=== PATIENT | male | born 1990 | race Caucasian/White ===

== ENCOUNTER → 2018-10-05 | Outpatient (CLI) | payer MEDICAID ==
[2018-10-05 13:48] LABS: BASO % 0.4 % (0.0-1.0); EOS # 0.1 10^3/uL (0.0-0.50); EOS % 2.7 % (0.0-3.0); HEMATOCRIT 36.8 % (42.0-52.0); HEMOGLOBIN 12.6 g/dl (13.5-17.5); LYMPH % 42.5 % (24.0-44.0); MEAN CORPUSCULAR HEMOGLOBIN 28.9 pg (27.0-33.0); MEAN CORPUSCULAR HGB CONC 34.2 g/dl (32.0-36.5); MEAN CORPUSCULAR VOLUME 84.4 fl (80.0-96.0); MONO # 0.5 10^3/uL (0.0-0.8); MONO % 10.5 % (0.0-5.0); NEUTROPHILS # 2.1 10^3/uL (1.8-7.7); NEUTROPHILS % 43.9 % (36.0-66.0); PLATELET COUNT, AUTOMATED 151 10^3/uL (150-450); RED BLOOD COUNT 4.36 10^6/uL (4.30-6.10); RED CELL DISTRIBUTION WIDTH 11.9 % (11.5-14.5); WHITE BLOOD COUNT 4.8 10^3/uL (4.0-10.0)
[2018-10-05 14:22] LABS: ALBUMIN 3.7 GM/DL (3.2-5.2); ALBUMIN/GLOBULIN RATIO 1.28 (1.00-1.93); ALKALINE PHOSPHATASE 55 U/L (45-117); ALT/SGPT 171 U/L (12-78); ANION GAP 7 MEQ/L (8-16); AST/SGOT 93 U/L (7-37); BILIRUBIN,TOTAL 0.3 MG/DL (0.2-1.0); BLOOD UREA NITROGEN 13 MG/DL (7-18); CALCIUM LEVEL 8.4 MG/DL (8.5-10.1); CARBON DIOXIDE LEVEL 29 MEQ/L (21-32); CHLORIDE LEVEL 107 MEQ/L (98-107); CREATININE FOR GFR 0.83 MG/DL (0.70-1.30); GLOMERULAR FILTRATION RATE > 60.0 (>60); GLUCOSE, FASTING 80 MG/DL (70-100); POTASSIUM SERUM 4.3 MEQ/L (3.5-5.1); SODIUM LEVEL 143 MEQ/L (136-145); TOTAL PROTEIN 6.6 GM/DL (6.4-8.2)
== END ==
LOC: M LAB 13:24
DX: F11.20 Opioid dependence, uncomplicated (principal)
CPT/HCPCS: 84443

== ENCOUNTER → 2019-07-05 | Outpatient (REF) | payer MEDICAID, OTHER ==
[2019-07-05 21:55] LABS: APPEARANCE, URINE HAZY (CLEAR); BACTERIA, URINE AUTO NEGATIVE (NEGATIVE); BILIRUBIN, URINE AUTO NEGATIVE (NEGATIVE); BLOOD, URINE BLOOD NEGATIVE (NEGATIVE); COLOR, URINE YELLOW (YELLOW); GLUCOSE, URINE (UA) AUTO NEGATIVE (NEGATIVE); KETONE, URINE AUTO TRACE mg/dL (NEGATIVE); LEUKOCYTE ESTERASE, URINE AUTO NEGATIVE (NEGATIVE); MUCUS, URINE SMALL (NEGATIVE); NITRITE, URINE AUTO NEGATIVE (NEGATIVE); PROTEIN, URINE AUTO 1+ mg/dL (NEGATIVE); RBC, URINE AUTO 1 /HPF (0-3); SPECIFIC GRAVITY URINE AUTO 1.036 (1.002-1.035); SQUAMOUS EPITHELIAL CELL UR AU 0 /HPF (0-6); UROBILINOGEN, URINE AUTO 0.2 mg/dL (0.0-2.0); WBC, URINE AUTO 0 /HPF (0-3)
== END ==
LOC: M LAB REF 09:14
PROVIDERS: ATTEND Physician Assistant Medical
DX: N39.0 Urinary tract infection, site not specified (principal)

== ENCOUNTER → 2019-07-07 | Outpatient (REF) | payer OTHER ==
[~2019-07-07] MED LIST: CLON0.2D6 PO; CLON0.2T PO; SUBO8MIS SL
[2019-07-07 16:00] LABS: BASO % 0.6 % (0.0-1.0); EOS # 0.2 10^3/uL (0.0-0.5); EOS % 3.1 % (0.0-3.0); HEMATOCRIT 34.8 % (42.0-52.0); HEMOGLOBIN 12.2 g/dl (13.5-17.5); LYMPH # 2.4 10^3/uL (1.5-5.0); LYMPH % 46.8 % (24.0-44.0); MEAN CORPUSCULAR HGB CONC 35.1 g/dl (32.0-36.5); MEAN CORPUSCULAR VOLUME 85.5 fl (80.0-96.0); MONO # 0.4 10^3/uL (0.0-0.8); MONO % 8.1 % (0.0-5.0); NEUTROPHILS # 2.1 10^3/uL (1.5-8.5); NEUTROPHILS % 41.2 % (36.0-66.0); PLATELET COUNT, AUTOMATED 143 10^3/uL (150-450); RED BLOOD COUNT 4.07 10^6/uL (4.30-6.10); WHITE BLOOD COUNT 5.2 10^3/uL (4.0-10.0)
[2019-07-07 16:12] LABS: APPEARANCE, URINE HAZY (CLEAR); BACTERIA, URINE AUTO NEGATIVE (NEGATIVE); BILIRUBIN, URINE AUTO NEGATIVE (NEGATIVE); BLOOD, URINE BLOOD NEGATIVE (NEGATIVE); COLOR, URINE YELLOW (YELLOW); GLUCOSE, URINE (UA) AUTO NEGATIVE (NEGATIVE); KETONE, URINE AUTO NEGATIVE (NEGATIVE); LEUKOCYTE ESTERASE, URINE AUTO NEGATIVE (NEGATIVE); MUCUS, URINE SMALL (NEGATIVE); NITRITE, URINE AUTO NEGATIVE (NEGATIVE); PROTEIN, URINE AUTO NEGATIVE (NEGATIVE); RBC, URINE AUTO 3 /HPF (0-3); SPECIFIC GRAVITY URINE AUTO 1.029 (1.002-1.035); SQUAMOUS EPITHELIAL CELL UR AU 0 /HPF (0-6); UROBILINOGEN, URINE AUTO 0.2 mg/dL (0.0-2.0); WBC, URINE AUTO 1 /HPF (0-3)
[2019-07-07 16:17] LABS: ALBUMIN 3.9 GM/DL (3.2-5.2); ALT/SGPT 29 U/L (12-78); BILIRUBIN,TOTAL 0.4 MG/DL (0.2-1.0); BLOOD UREA NITROGEN 10 MG/DL (7-18); CALCIUM LEVEL 8.6 MG/DL (8.5-10.1); CARBON DIOXIDE LEVEL 31 MEQ/L (21-32); CHLORIDE LEVEL 110 MEQ/L (98-107); CREATININE FOR GFR 0.95 MG/DL (0.70-1.30); GLOMERULAR FILTRATION RATE > 60.0 (>60); GLUCOSE, FASTING 59 MG/DL (70-100); SODIUM LEVEL 145 MEQ/L (136-145); TOTAL PROTEIN 6.8 GM/DL (6.4-8.2)
[2019-07-07 17:54] LABS: CHLAMYDIA DNA AMPLIFICATION NEGATIVE (NEGATIVE); GC DNA AMPLIFICATION NEGATIVE (NEGATIVE)
[2019-07-08 11:31] LABS: HEPATITIS B SURFACE ANTIGEN NEGATIVE (NEGATIVE)
[2019-07-08 11:59] LABS: HEPATITIS B CORE ANTIBODY IGM NEGATIVE (NEGATIVE)
[2019-07-08 12:00] LABS: HIV 1&2 SCREEN CENTAUR NEGATIVE (NEGATIVE)
[2019-07-08 12:01] LABS: HEPATITIS A ANTIBODY IGM NEGATIVE (NEGATIVE)
== END ==
LOC: M SFHCPLAZ 14:04
PROVIDERS: ATTEND Nurse Practitioner Family
DX: F11.11 Opioid abuse, in remission (principal); R10.9 Unspecified abdominal pain; Z11.9 Encounter for screening for infectious and parasitic diseases, unspecified; R35.8 Other polyuria; K59.00 Constipation, unspecified

== ENCOUNTER 2019-08-03 17:00 | Inpatient (IN) | payer MEDICAID, OTHER ==
[~2019-08-03] VITALS: Ht 172.7 cm; Wt 63.4 kg
[2019-08-03] MEDS ORDERED: SUBO8MIS SL ×2 (17:17→18:58)
[2019-08-03] MEDS ORDERED: CLON0.2D6 PO (17:17)
[2019-08-03 17:31] LABS: HEMATOCRIT 41.8 % (42.0-52.0); HEMOGLOBIN 14.5 g/dl (13.5-17.5); MEAN CORPUSCULAR HEMOGLOBIN 29.3 pg (27.0-33.0); MEAN CORPUSCULAR HGB CONC 34.7 g/dl (32.0-36.5); MEAN CORPUSCULAR VOLUME 84.4 fl (80.0-96.0); PLATELET COUNT, AUTOMATED 207 10^3/uL (150-450); RED BLOOD COUNT 4.95 10^6/uL (4.30-6.10); WHITE BLOOD COUNT 7.3 10^3/uL (4.0-10.0)
[2019-08-03 18:27] LABS: ACETAMINOPHEN LEVEL < 2.0 UG/ML (10.0-30.0); ALBUMIN 4.5 GM/DL (3.2-5.2); ALT/SGPT 41 U/L (12-78); AMPHETAMINES LEVEL URINE POSITIVE (NEGATIVE); BARBITURATES URINE NEGATIVE (NEGATIVE); BENZODIAZEPINES URINE NEGATIVE (NEGATIVE); BILIRUBIN,DIRECT 0.2 MG/DL (0.0-0.2); BILIRUBIN,TOTAL 0.5 MG/DL (0.2-1.0); BLOOD UREA NITROGEN 17 MG/DL (7-18); CALCIUM LEVEL 9.2 MG/DL (8.5-10.1); CANNABINOIDS URINE NEGATIVE (NEGATIVE); CARBON DIOXIDE LEVEL 28 MEQ/L (21-32); CHLORIDE LEVEL 106 MEQ/L (98-107); COCAINE METABOLITE URINE POSITIVE (NEGATIVE); CPK CREATINE PHOSPHOKINASE 2056 U/L (39-308); CREATININE FOR GFR 1.05 MG/DL (0.70-1.30); ETHYL ALCOHOL (ETHANOL) < 0.003 % (0.000-0.010); GLOMERULAR FILTRATION RATE > 60.0 (>60); GLUCOSE, FASTING 89 MG/DL (70-100); METHADONE URINE NEGATIVE (NEGATIVE); OPIATES URINE NEGATIVE (NEGATIVE); PHENCYCLIDINE URINE NEGATIVE (NEGATIVE); POTASSIUM SERUM 3.6 MEQ/L (3.5-5.1); SALICYLATE LEVEL 2.4 MG/DL (5.0-30.0); SODIUM LEVEL 140 MEQ/L (136-145)
[2019-08-03] MEDS ORDERED: CLON0.2T PO (18:58)
[2019-08-03] MEDS ORDERED: NS 1,000 ML IV ONE ×2 (19:00)
--- NOTE | 2019-08-03 20:50 | ECGEPIP ---
[facility] - ED Test Date: 2019-08-03 Pat Name: GREGORIA MCDANIEL Department: Room: - Gender: Male Willower: : 1990 Requested By: Janie Yeboah Order Number: [id number] Reading MD: Janie Yeboah Measurements Intervals [place] Rate: 61 P: 55 LA: 112 QRS: 68 QRSD: 106 T: 59 QT: 431 QTc: 435 Interpretive Statements SINUS RHYTHM WITH SHORT LA INTERVAL EARLY REPOLARIZATION NO PRIOR Electronically Signed on 08-03-2019 20:50:08 EDT by Janie Yeboah
[2019-08-03] MEDS ORDERED: BUPRENORPHINE/NALOXONE 8-2MG SUBLINGUAL TABLET(SUBOXONE) SL ONE (21:30)
[2019-08-03] MEDS: NS 1,000 ML IV SCH (23:19)
[2019-08-04] MEDS: NS 1,000 ML IV SCH (05:41)
[2019-08-04] MEDS ORDERED: BUPRENORPHINE/NALOXONE 8-2MG SUBLINGUAL TABLET(SUBOXONE) SL ONE (07:45)
[2019-08-04] MEDS ORDERED: MOM 30ML SUSPENSION UDC PO PRN (14:15)
[2019-08-04] MEDS ORDERED: MAALOX 30 ML SUSP *UDC PO PRN (14:15)
[2019-08-04] MEDS ORDERED: traZODone 50 MG TAB PO PRN (14:15)
[2019-08-04] MEDS: cloNIDine 0.2 MG TAB PO SCH (22:54)
[2019-08-04] MEDS: DOCUSATE SODIUM 100 MG CAP PO SCH (22:54)
[2019-08-05 06:28] VITALS: BP 95/52
[2019-08-05 08:30] VITALS: BP 95/52
[2019-08-05] MEDS ORDERED: INFLUENZA QUADRIVALENT PF VACCINE 0.5ML SYRINGE (90686) IM ONE (09:00)
[2019-08-05] MEDS ORDERED: BUPRENORPHINE/NALOXONE 8-2MG SUBLINGUAL TABLET(SUBOXONE) SL SCH ×2 (09:00→12:00)
[2019-08-05] MEDS: BUPRENORPHINE/NALOXONE 8-2MG SUBLINGUAL TABLET(SUBOXONE) SL SCH (09:02)
[2019-08-05] MEDS: NICOTINE 21MG/24HR 1 EA TRANSDERMAL TD SCH (09:02)
[2019-08-05] MEDS: DOCUSATE SODIUM 100 MG CAP PO SCH ×2 (09:02→21:00)
--- NOTE | 2019-08-05 10:44 | HPEPDOC ---
[facility] Medical History & Physical Date of Admission Aug 05, 2019 Date of Service: Aug 05, 2019 History and Physical CONSULT FOR: Psychiatry medical H&P HISTORY OF PRESENT ILLNESS: This is a 29-year-old man who had the [place] [employer]: Him by his ex-fianc after he reportedly threatened to harm himself with a knife. The recently had a difficult breakup. The patient had been heroin abuser previously has been on Suboxone and incarcerated and has been clean for 1 year since his release however he began using illicit substances cocaine and Mollie with the last 2 weeks. At this time he tells me he feels tired but otherwise is feeling well. Otherwise patient denies weight loss, hair loss, headache, visual changes, chest pain, shortness of breath, cough, nausea, vomiting, diarrhea, a bdominal pain, muscle aches, worsening arthritis, change in mood PAST MEDICAL HISTORY: 1. Polysubstance abuse. 2. Chronic constipation. 3. Tobacco abuse. HOME MEDICATIONS: Please see below. ALLERGIES: Please see below PAST SURGICAL HISTORY: 1. None. SOCIAL HISTORY: Lives with: Ex-fivance, Tobacco use: One pack per day for 11 years. ETOH: Denies, Illicit drug use: As outlined above, CODE STATUS: Full code FAMILY HISTORY:Reviewed and noncontributory REVIEW OF SYSTEMS: 10 systems reviewed and negative other than HPI PHYSICAL EXAMINATION: VITAL SIGNS: Please see below GENERAL: Pleasant young man sitting up in bed awake alert oriented speaking in complete sentences no acute distress HEENT: Moist mucous membranes no elevation in CVP CARDIOVASCULAR: S1 S2 regular no additional heart sounds appreciated. RESPIRATORY: Clear to auscultation bilaterally. ABDOMINAL: Bowel sounds present abdomen soft and nontender EXTREMITIES: No clubbing cyanosis or edema, numerous tattoos all. We professionally done NEUROLOGICAL: Spontaneously moves all 4 extremities cranial 2 through 12 grossly intact no gross focal deficits appreciated PSYCHOLOGICAL: Appropriate LABORATORY DATA: See below. MICROBIOLOGY: Please see below. IMAGING: None ASSESSMENT & PLAN: This is a 29-year-old man with suicidal ideation. PROBLEMS: 1. major depressive disorder with suicidal ideation: Management as per psychiatry. 2.Substance abuse: He has been started on his home clonidine and Suboxone will require continued close outpatient follow-up through his PCP Joanie Garcia. Currently on peripheral 3. Tobacco abuse: NicoDerm assorted transplant 4. Chronic constipation: He is provided with Colace and milk of magnesia as needed DVT PROPHYLAXIS:Ambulating Thank you for this interesting consult, we will continue to follow along with you. Please Vocera secure text or call with any specific questions. Vital Signs Vital Signs Date Time Temp Pulse Resp B/P (MAP) Pulse Ox O2 Delivery O2 Flow Rate FiO2 08/05/19 08:30 98.6 57 14 95/52 99 08/05/19 08:14 Room Air Home Medications Scheduled Buprenorphine HCl/Naloxone HCl (Suboxone 8 mg-2 mg Sl Film) 1 Each Film, 1 STRIP SL DAILY Buprenorphine HCl/Naloxone HCl (Suboxone 8 mg-2 mg Sl Film) 1 Each Film, 0.5 STRIP SL DAILY AFTERNOON Clonidine HCl (Clonidine HCl) 0.2 Mg Tablet, 0.2 MG PO QHS Allergies Coded Allergies: No Known Drug Allergies (Verified Allergy, Unknown, 08/03/19) A-FIB/CHADSVASC A-FIB History Current/History of A-Fib/PAF?: No NAZARIO KING MD Aug 05, 2019 10:44
--- NOTE | 2019-08-05 10:49 | MHHPEPDOC ---
General Date Of Admission: Aug 04, 2019 Legal Status: 9.39 Chief Complaint "I don't really remember all that happened". History of Present Illness HISTORY OF THE PRESENT ILLNESS: Patient is a 29 -year-old , male, with a history of cociane/marck/opiate use d/o and no previous psych admissions who she was brought to ED by [facility] after pt's ex-girlfriend called them stating pt was threatening to harm himself with a knife he'd got from the kitchen during a verbal argument. Per ED, pt had be using cocaine and marck a few hours prior and in the past 2wks, on a drug binge, and up for the past 2 days. Pt in the ED denied that he'd grabbed a knife and was suicidal and stated his girlfriend was "crazy" and wanted to put him in the "psych rausch." Pt's mother, Carol Tran, called by the ED and stated that pt and girlfriend had had a bad break-up 2wks ago, had started relationship doing drugs together but the got into recovery together, and pt had been clean for 1yr prior to relapsing 2wks ago on marck and cocaine. Pt's mother stated that she did not think pt would harm himself per ED and has no history of doing so. Pt currently on [place] after incarceration for 5yrs for drugs. His utox was positive for cociane and amphetamines. Psychiatric Review of Systems Depression (2 or more weeks): suicidal thoughts Gilda (4 or more days of): denies Psychosis: denies PTSD: denies Anxiety: situational anxiety, stressor related anxiety Anxiety/ 6 months or more of: restlessness, keyed up, difficulty concentrating, irritability, muscle tension Past Psychiatric History Previous Psychiatric Diagnosis: cocaine/marck/opiate use d/o Previous Psychiatric Admissions: denies Suicide Attempts: denies Psychiatric Follow-up: creto Psychiatric medications: suboxone 1.5 (06/03) SL Past Medical History Medical Problems denies Head Injury: No Seizures: No Hospitalizations: No Surgeries: No Family Medical/Psychiatric HX Medical Problems noncontributory Psychiatric Disorders: No Addiction: No Suicide Attemps/Completions: Yes (cousin commited suicide when pt was in care home) Addiction History nicotine, cocaine, amphetamines, opioids (past use, on suboxone now), methamphetamines, other (marck) Social History Childhood: born [place] raised in [place], mostly by his mother with father on-and -off around, 3 sisters, good childhood Abuse/Trauma:denies. Current Living Situation: lives in [place] with his girlfriend (he's calls her his fiance and says they're still together) and her kids Education: GED Employment: construction "under the table" payment Social Support: mother, girlfriend. Legal: parole after incarceration 5yrs for drugs Marital: single, never , no biological kids Mental Status Examination General Appearance: well groomed, appears stated age, hospital scubs/clothing Build: average Demeanor: average Eye Contact: average Activity: average Behavior: cooperative Speech: clear, spontaneous, reg/rate,rhythm,volume Mood: depressed Mood "better" Affect: full, appropriate, congruent Thought Process: logical/linear, intact Thought Content (Delusions): none reported, denies SI, HI, AVH Thought Content (Other): none reported, appropriate Thought Content (Aggressive): none reported Perception (Hallucinations): none reported Perception (Other): none reported Cognition (Impairment of): none reported Cognition(Intelligence Est.): average Oriented: Awake, Alert, Oriented times three Insight: fair Judgment: Fair Psychosis: Denies Diagnoses Unspecified Depression R/O substance induced mood d/o - cocaine cocaine/amphetamine/psychedelic use d/o history opiate use d/o A-FIB/CHADSVASC A-FIB History Current/History of A-Fib/PAF?: No Assessment Pt seen and states he's doing "ok." States that he had been on a 2wk binge with cocaine and Marck after having leaving home where he lives with his girlfriend b/c he knew she would be upset and not want to be with him if he was using drugs b/c "she's totally against that," and had returned to home night of admission very high and cannot remember exactly what happened regarding if he threatened to harm himself with a knife. States he's glad he's here now for help to stop using substances and get into sobriety again. He denies feeling depressed or suicidal. Denies he needs to start an antidepressant at this time as feels better w/o substance abuse and good sleep at night. Encouraged to go to groups as part of his treatment and he states he will. Will restart outpatient suboxo ne for pt while here regarding history opiate use d/o. Denies SI/HI, hallucinations, delusions. Feels safe here. Initial Treatment Plan 1. Patient was admitted on a 9.39 status. 2. Complete history was obtained. 3. With patients permission, family will be contacted and database will be expanded. 4. Patients medication regimen will be reviewed and changed accordingly. 5. Patient will be provided with protected environment. 6. Patient will be treated with individual, group, and milieu therapies. 7. Patient will receive supportive psych-education. 8. Discharge planning will commence immediately. 9. Outpatient follow-up treatment will be strongly recommended. 10. The initial treatment plan will focus initially on: * Depression. * Risk for suicide. 11. restart outpatient suboxone ESTIMATED LENGTH OF STAY: 5-7 DAYS. TIME SPENT COUNSELING AND COORDINATING INITIAL CARE: 60 minutes. Vital Signs Vital Signs Date Time Temp Pulse Resp B/P (MAP) Pulse Ox O2 Delivery O2 Flow Rate FiO2 08/05/19 08:30 98.6 57 14 95/52 99 08/05/19 08:14 Room Air Medications Scheduled Buprenorphine HCl/Naloxone HCl (Suboxone 8 mg-2 mg Sl Film) 1 Each Film, 1 STRIP SL DAILY, (Reported) Buprenorphine HCl/Naloxone HCl (Suboxone 8 mg-2 mg Sl Film) 1 Each Film, 0.5 STRIP SL DAILY, (Reported) AFTERNOON Clonidine HCl (Clonidine HCl) 0.2 Mg Tablet, 0.2 MG PO QHS, (Reported) Allergies Coded Allergies: No Known Drug Allergies (Verified Allergy, Unknown, 08/03/19) ERICA MUSTAFA DO Aug 05, 2019 10:49 am
[2019-08-05 15:41] VITALS: BP 100/51
[2019-08-05] MEDS: cloNIDine 0.2 MG TAB PO SCH (21:00)
[2019-08-06 06:51] VITALS: BP 100/52
[2019-08-06] MEDS: ACETAMINOPHEN TAB 650MG DOSE (2X325MG) PO PRN (08:25)
[2019-08-06] MEDS: BUPRENORPHINE/NALOXONE 8-2MG SUBLINGUAL TABLET(SUBOXONE) SL SCH ×2 (08:34→15:13)
[2019-08-06] MEDS: NICOTINE 21MG/24HR 1 EA TRANSDERMAL TD SCH (09:14)
[2019-08-06] MEDS: DOCUSATE SODIUM 100 MG CAP PO SCH ×2 (09:14→21:00)
[2019-08-06] MEDS ORDERED: PILL CUTTER 1 EACH XX PRN (13:00)
[2019-08-06 16:02] VITALS: BP 108/66
--- NOTE | 2019-08-06 19:01 | MHIPNPDOC ---
[facility] Progress Note Progress Note DATE OF SERVICE: 08/06/19 HISTORY: As per Dr. Garland: "clarisa is a 29 -year-old , male, with a history of cociane/marck/opiate use d/o and no previous psych admissions who she was brought to ED by [facility] after pt's ex-girlfriend called them stating pt was threatening to harm himself with a knife he'd got from the kitchen during a verbal argument. Per ED, pt had be using cocaine and marck a few hours prior and in the past 2wks, on a drug binge, and up for the past 2 days. Pt in the ED denied that he'd grabbed a knife and was suicidal and stated his girlfriend was "crazy" and wanted to put him in the "psych rausch." Pt's mother, Carol Tran, called by the ED and stated that pt and girlfriend had had a bad break-up 2wks ago, had started relationship doing drugs together but the got into recovery together, and pt had been clean for 1yr prior to relapsing 2wks ago on marck and cocaine. Pt's mother stated that she did not think pt would harm himself per ED and has no history of doing so. Pt currently on [place] after incarceration for 5yrs for drugs. His utox was positive for cociane and amphetamines." VITAL SIGNS: See below. NEW TEST RESULTS: See below CURRENT MEDICATIONS: See below. MENTAL STATUS EXAMINATION: General Appearance: well groomed, appears stated age, wearing personal clothes Build: average Demeanor: cooperative Eye Contact: average Activity: calm Behavior: cooperative Speech: clear, spontaneous, reg/rate,rhythm,volume Mood: depressed/"less irritable" Mood "i feel better because I've been catching up on sleep" Affect: Constricted Thought Process: logical/linear, intact Thought Content (Delusions): none reported, denies SI, HI, AVH Thought Content (Other): none reported, appropriate Thought Content (Aggressive): none reported Perception (Hallucinations): none reported Perception (Other): none reported Cognition (Impairment of): none reported Cognition(Intelligence Est.): average Oriented: Awake, Alert, Oriented times three Insight: fair Judgment: Fair Psychosis: Denies Diagnoses Unspecified Depression R/O substance induced mood d/o - cocaine cocaine/amphetamine/psychedelic use d/o history opiate use d/o ASSESSMENT: the patient reports he's feeling better, medications are working, he is feeling less paranoid, he says, because he was afraid he was going to back to usp but now he knows he won't. He is talking to his GF and trying to make things work out between them MANAGEMENT PLAN: As per Dr. Garland TIME SPENT: 20 minutes. Vital Signs Vital Signs Date Time Temp Pulse Resp B/P (MAP) Pulse Ox O2 Delivery O2 Flow Rate FiO2 08/06/19 06:51 98.9 67 14 100/52 (68) 08/05/19 08:30 99 08/05/19 08:14 Room Air Current Medications Current Medications Medications (Trade) Dose Ordered Sig/Zohaib Route PRN Reason Start Time Stop Time Status Last Admin Dose Admin Acetaminophen (Tylenol Tab) 650 mg Q6HP PRN PO HEADACHE or DISCOMFORT 08/04/19 14:15 08/06/19 08:25 Al Hydrox/Mg Hydrox/Simethicone (Mylanta) 30 ml Q4HP PRN PO HEARTBURN/INDIGESTION 08/04/19 14:15 Buprenorphine/ Naloxone (Suboxone 8/2mg) 0.5 tab DAILY SL 08/05/19 09:00 08/04/19 15:43 DC 08/04/19 14:48 Buprenorphine/ Naloxone (Suboxone 8/2mg) 0.5 tab DAILY@1200 SL 08/05/19 12:00 08/06/19 12:45 DC 08/05/19 11:57 Buprenorphine/ Naloxone (Suboxone 8/2mg) 0.5 tab DAILY@1500 SL 08/06/19 15:00 Buprenorphine/ Naloxone (Suboxone 8/2mg) 1 tab DAILY SL 08/05/19 09:00 08/06/19 08:34 Clonidine HCl (Catapres) 0.2 mg QHS PO 08/04/19 21:00 Docusate Sodium (Colace) 100 mg BID PO 08/04/19 21:00 08/06/19 09:14 Home Med (Med Rec Complete!) ASDIRECTED XX 08/03/19 19:00 08/03/19 19:00 DC Magnesium Hydroxide (Milk Of Magnesia) 30 ml DAILYPRN PRN PO CONSTIPATION 08/04/19 14:15 Nicotine (Nicoderm Cq 21mg) 1 patch DAILY TD 08/05/19 09:00 08/06/19 09:14 Sodium Chloride 1,000 ml @ 150 mls/hr Q6H40M IV 08/03/19 23:06 08/04/19 07:35 DC 08/04/19 05:41 Trazodone HCl (Desyrel) 50 mg QHSP PRN PO INSOMNIA 08/04/19 14:15 Allergies Coded Allergies: No Known Drug Allergies (Verified Allergy, Unknown, 08/03/19) HELADIO NUGENT MD Aug 06, 2019 13:25
[2019-08-06 21:00] VITALS: BP 108/66
[2019-08-06] MEDS: cloNIDine 0.2 MG TAB PO SCH (21:00)
[2019-08-07 06:36] VITALS: BP 112/64
[2019-08-07] MEDS: DOCUSATE SODIUM 100 MG CAP PO SCH ×2 (08:36→21:00)
[2019-08-07] MEDS: NICOTINE 21MG/24HR 1 EA TRANSDERMAL TD SCH (08:36)
[2019-08-07] MEDS: BUPRENORPHINE/NALOXONE 8-2MG SUBLINGUAL TABLET(SUBOXONE) SL SCH ×2 (08:41→15:15)
[2019-08-07] MEDS: ACETAMINOPHEN TAB 650MG DOSE (2X325MG) PO PRN (08:41)
--- NOTE | 2019-08-07 12:11 | MHIPNPDOC ---
[facility] Progress Note Progress Note DATE OF SERVICE: 08/07/19 HISTORY: As per Dr. Garland: "clarisa is a 29 -year-old , male, with a history of cociane/marck/opiate use d/o and no previous psych admissions who she was brought to ED by [facility] after pt's ex-girlfriend called them stating pt was threatening to harm himself with a knife he'd got from the kitchen during a verbal argument. Per ED, pt had be using cocaine and marck a few hours prior and in the past 2wks, on a drug binge, and up for the past 2 days. Pt in the ED denied that he'd grabbed a knife and was suicidal and stated his girlfriend was "crazy" and wanted to put him in the "psych rausch." Pt's mother, Carol Tran, called by the ED and stated that pt and girlfriend had had a bad break-up 2wks ago, had started relationship doing drugs together but the got into recovery together, and pt had been clean for 1yr prior to relapsing 2wks ago on marck and cocaine. Pt's mother stated that she did not think pt would harm himself per ED and has no history of doing so. Pt currently on [place] after incarceration for 5yrs for drugs. His utox was positive for cociane and amphetamines." VITAL SIGNS: See below. NEW TEST RESULTS: See below CURRENT MEDICATIONS: See below. MENTAL STATUS EXAMINATION: General Appearance: well groomed, appears stated age, wearing personal clothes Build: average Demeanor: cooperative Eye Contact: average Activity: calm Behavior: cooperative Speech: clear, spontaneous, reg/rate,rhythm,volume Mood: depressed/"less irritable" Mood "Much better" Affect: Constricted Thought Process: logical/linear, intact Thought Content (Delusions): none reported, denies SI, HI, AVH Thought Content (Other): none reported, appropriate Thought Content (Aggressive): none reported Perception (Hallucinations): none reported Perception (Other): none reported Cognition (Impairment of): none reported Cognition(Intelligence Est.): average Oriented: Awake, Alert, Oriented times three Insight: fair Judgment: Fair Psychosis: Denies Diagnoses Unspecified Depression R/O substance induced mood d/o - cocaine cocaine/amphetamine/psychedelic use d/o history opiate use d/o ASSESSMENT: tHe seems to be less tense than yesterday when he was not happy about meeting with me because his GF was here. He is more realxed today because she's not here and he thinks he will be d/c/d tomorrow. MANAGEMENT PLAN: As per Dr. Garland TIME SPENT: 20 minutes. Vital Signs Vital Signs Date Time Temp Pulse Resp B/P (MAP) Pulse Ox O2 Delivery O2 Flow Rate FiO2 08/07/19 06:36 97.9 55 14 112/64 (80) 08/05/19 08:30 99 08/05/19 08:14 Room Air Current Medications Current Medications Medications (Trade) Dose Ordered Sig/Zohaib Route PRN Reason Start Time Stop Time Status Last Admin Dose Admin Acetaminophen (Tylenol Tab) 650 mg Q6HP PRN PO HEADACHE or DISCOMFORT 08/04/19 14:15 08/07/19 08:41 Al Hydrox/Mg Hydrox/Simethicone (Mylanta) 30 ml Q4HP PRN PO HEARTBURN/INDIGESTION 08/04/19 14:15 Buprenorphine/ Naloxone (Suboxone 8/2mg) 0.5 tab DAILY SL 08/05/19 09:00 08/04/19 15:43 DC 08/04/19 14:48 Buprenorphine/ Naloxone (Suboxone 8/2mg) 0.5 tab DAILY@1200 SL 08/05/19 12:00 08/06/19 12:45 DC 08/05/19 11:57 Buprenorphine/ Naloxone (Suboxone 8/2mg) 0.5 tab DAILY@1500 SL 08/06/19 15:00 08/06/19 15:13 Buprenorphine/ Naloxone (Suboxone 8/2mg) 1 tab DAILY SL 08/05/19 09:00 08/07/19 08:41 Clonidine HCl (Catapres) 0.2 mg QHS PO 08/04/19 21:00 Docusate Sodium (Colace) 100 mg BID PO 08/04/19 21:00 08/07/19 08:36 Home Med (Med Rec Complete!) ASDIRECTED XX 08/03/19 19:00 08/03/19 19:00 DC Magnesium Hydroxide (Milk Of Magnesia) 30 ml DAILYPRN PRN PO CONSTIPATION 08/04/19 14:15 Nicotine (Nicoderm Cq 21mg) 1 patch DAILY TD 08/05/19 09:00 08/07/19 08:36 Sodium Chloride 1,000 ml @ 150 mls/hr Q6H40M IV 08/03/19 23:06 08/04/19 07:35 DC 08/04/19 05:41 Trazodone HCl (Desyrel) 50 mg QHSP PRN PO INSOMNIA 08/04/19 14:15 Allergies Coded Allergies: No Known Drug Allergies (Verified Allergy, Unknown, 08/03/19) HELADIO NUGENT MD Aug 07, 2019 12:11
[2019-08-07 16:03] VITALS: BP 107/64
[2019-08-07] MEDS: cloNIDine 0.2 MG TAB PO SCH (21:00)
[2019-08-08 06:19] VITALS: BP 98/54
--- NOTE | 2019-08-08 08:39 | MHDSPDOC ---
[facility] Discharge Summary Discharge Summary DATE OF ADMISSION: Aug 04, 2019 at 2:05 pm DATE OF DISCHARGE: Aug 08, 2019 DISCHARGE DIAGNOSES: Unspecified Depression R/O substance induced mood d/o - cocaine cocaine/amphetamine/psychedelic use d/o history opiate use d/o REASON FOR ADMISSION:Patient is a 29 -year-old , male, with a history o f cociane/marck/opiate use d/o and no previous psych admissions who she was brought to ED by [facility] after pt's ex-girlfriend called them stating pt was threatening to harm himself with a knife he'd got from the kitchen during a verbal argument. Per ED, pt had be using cocaine and marck a few hours prior and in the past 2wks, on a drug binge, and up for the past 2 days. Pt in the ED denied that he'd grabbed a knife and was suicidal and stated his girlfriend was "crazy" and wanted to put him in the "psych rausch." Pt's mother, Carol Tran, called by the ED and stated that pt and girlfriend had had a bad break-up 2wks ago, had started relationship doing drugs together but the got into recovery together, and pt had been clean for 1yr prior to relapsing 2wks ago on marck and cocaine. Pt's mother stated that she did not think pt would harm himself per ED and has no history of doing so. Pt currently on [place] after incarceration for 5yrs for drugs. His utox was positive for cociane and amphetamines. CONSULTANTS INVOLVED: none TREATMENT AND PROGRESS ON THE UNIT : Pt was admitted to [facility], seen for psychiatric assessment and monitored for safety. He declined to start a psychotropic medication feeling he didn't need one b/c he wasn't depressed and preferred to try outpatient therapy first. He was provided trazodone 50mg qhs prn insomnia. Pt found his medications beneficial and tolerated them well. He attended groups daily during his stay. His symptoms improved with treatment. On day of discharge he denied depression, anxiety, insomnia, SI/HI, hallucinations, delusions. He was discharged home with follow-up at [facility]. He felt safe for discharge. DISCHARGE ASSESSMENT: Pt seen and states that his mood is "good". States he slept well last night. Feels he is tolerating his medications and they're beneficial. He is attending groups and finding them helpful. States his mother and girlfriend are supportive of him. He denies depression, anxiety, insomnia, SI/HI, hallucinations, delusions. Pt feels safe to be discharge home. MENTAL STATUS EXAMINATION ON DISCHARGE: General Appearance: well groomed, appears stated age, wearing personal clothes Build: average Demeanor: cooperative Eye Contact: average Activity: calm Behavior: cooperative Speech: clear, spontaneous, reg/rate,rhythm,volume Mood: depressed/"less irritable" Mood "good" Affect: Constricted Thought Process: logical/linear, intact Thought Content (Delusions): none reported, denies SI, HI, AVH Thought Content (Other): none reported, appropriate Thought Content (Aggressive): none reported Perception (Hallucinations): none reported Perception (Other): none reported Cognition (Impairment of): none reported Cognition(Intelligence Est.): average Oriented: Awake, Alert, Oriented times three Insight: fair Judgment: Fair Psychosis: Denies MEDICATIONS ON DISCHARGE: none PLAN/FOLLOWUP ARRANGEMENTS: D/c home with follow-up at [facility] and [facility] The amount of time spent in the coordination of care for this patient was approximately 30 minutes. Vital Signs/I&Os Vital Signs Date Time Temp Pulse Resp B/P (MAP) Pulse Ox O2 Delivery O2 Flow Rate FiO2 08/08/19 06:19 99.8 70 18 98/54 (69) 08/05/19 08:30 99 08/05/19 08:14 Room Air Medications Scheduled Buprenorphine HCl/Naloxone HCl (Suboxone 8 mg-2 mg Sl Film) 1 Each Film, 1 STRIP SL DAILY, (Reported) Buprenorphine HCl/Naloxone HCl (Suboxone 8 mg-2 mg Sl Film) 1 Each Film, 0.5 STRIP SL DAILY, (Reported) AFTERNOON Clonidine HCl (Clonidine HCl) 0.2 Mg Tablet, 0.2 MG PO QHS, (Reported) Allergies Coded Allergies: No Known Drug Allergies (Verified Allergy, Unknown, 08/03/19) ERICA MUSTAFA DO Aug 08, 2019 8:39 am
[2019-08-08] MEDS: BUPRENORPHINE/NALOXONE 8-2MG SUBLINGUAL TABLET(SUBOXONE) SL SCH (08:43)
[2019-08-08] MEDS: NICOTINE 21MG/24HR 1 EA TRANSDERMAL TD SCH (08:43)
[2019-08-08] MEDS: DOCUSATE SODIUM 100 MG CAP PO SCH (08:43)
[2019-08-08] MEDS: ACETAMINOPHEN TAB 650MG DOSE (2X325MG) PO PRN (08:53)
== END 2019-08-08 11:30 | disposition home or self-care (01) | DRG 754 ==
LOC: M ED 17:00 → M ED INP 08-04 14:05 → M PSY 08-04 14:55
PROVIDERS: ADMIT Psychiatry & Neurology Addiction Medicine; ATTEND Psychiatry & Neurology Psychiatry
DX: F32.9 Major depressive disorder, single episode, unspecified (principal); F14.14 Cocaine abuse with cocaine-induced mood disorder; F15.10 Other stimulant abuse, uncomplicated; F11.10 Opioid abuse, uncomplicated; F17.200 Nicotine dependence, unspecified, uncomplicated; Z65.2 Problems related to release from prison; K59.09 Other constipation; Z79.899 Other long term (current) drug therapy

== ENCOUNTER 2019-12-02 05:45 | Emergency (ER) | payer MEDICAID, OTHER ==
[~2019-12-02] VITALS: Ht 172.7 cm; Wt 82.0 kg
[2019-12-02] MEDS ORDERED: NS 1,000 ML IV ONE ×2 (06:00→07:45)
[2019-12-02] MEDS ORDERED: LORazepam 2 MG/ML VIAL (J2060) IV ONE (06:00)
[2019-12-02] MEDS ORDERED: HYDR-3363 PO (06:03)
[2019-12-02] MEDS ORDERED: GABA600T4 PO (06:03)
[2019-12-02 06:40] LABS: BASO % 0.4 % (0.0-1.0); EOS % 0.4 % (0.0-3.0); HEMATOCRIT 32.3 % (42.0-52.0); HEMOGLOBIN 11.1 g/dl (13.5-17.5); LYMPH # 1.9 10^3/uL (1.5-5.0); LYMPH % 20.2 % (24.0-44.0); MEAN CORPUSCULAR HEMOGLOBIN 28.8 pg (27.0-33.0); MEAN CORPUSCULAR HGB CONC 34.4 g/dl (32.0-36.5); MEAN CORPUSCULAR VOLUME 83.7 fl (80.0-96.0); MONO # 1.2 10^3/uL (0.0-0.8); MONO % 12.5 % (0.0-5.0); NEUTROPHILS # 6.2 10^3/uL (1.5-8.5); NEUTROPHILS % 66.3 % (36.0-66.0); PLATELET COUNT, AUTOMATED 179 10^3/uL (150-450); RED BLOOD COUNT 3.86 10^6/uL (4.30-6.10); WHITE BLOOD COUNT 9.3 10^3/uL (4.0-10.0)
[2019-12-02 07:30] LABS: ACETAMINOPHEN LEVEL < 2.0 UG/ML (10.0-30.0); ALBUMIN 4.1 GM/DL (3.2-5.2); ALT/SGPT 52 U/L (12-78); BILIRUBIN,DIRECT 0.2 MG/DL (0.0-0.2); BILIRUBIN,TOTAL 1.1 MG/DL (0.2-1.0); BLOOD UREA NITROGEN 23 MG/DL (7-18); CARBON DIOXIDE LEVEL 24 MEQ/L (21-32); CHLORIDE LEVEL 104 MEQ/L (98-107); CPK CREATINE PHOSPHOKINASE 6555 U/L (39-308); CREATININE FOR GFR 1.04 MG/DL (0.70-1.30); ETHYL ALCOHOL (ETHANOL) < 0.003 % (0.000-0.010); GLOMERULAR FILTRATION RATE > 60.0 (>60); GLUCOSE, FASTING 79 MG/DL (70-100); POTASSIUM SERUM 4.2 MEQ/L (3.5-5.1); SALICYLATE LEVEL < 1.7 MG/DL (5.0-30.0); SODIUM LEVEL 140 MEQ/L (136-145); TOTAL PROTEIN 7.3 GM/DL (6.4-8.2)
--- NOTE | 2019-12-02 13:28 | ECGEPIP ---
[facility] - ED Test Date: 2019-12-02 Pat Name: GREGORIA MCDANIEL Department: Room: - Gender: Male [employer] Feeder: : 1990 Requested By: Ed Flowers Order Number: [id number] Reading MD: Janie Yeboah Measurements Intervals [place] Rate: 118 P: -15 LA: 114 QRS: 5 QRSD: 100 T: 46 QT: 350 QTc: 491 Interpretive Statements SINUS TACHYCARDIA WITH SHORT LA INTERVAL ABNORMAL RHYTHM ECG INCREASED RATE/PROLONGED QTC COMPARED 08/03/19 Electronically Signed on 12-02-2019 13:28:09 EST by Janie Yeboah
[2019-12-02 14:15] VITALS: BP 125/68
== END 2019-12-02 14:44 | disposition home or self-care (01) ==
LOC: M ED 05:45
DX: F15.229 Other stimulant dependence with intoxication, unspecified (principal); F17.210 Nicotine dependence, cigarettes, uncomplicated; Z79.891 Long term (current) use of opiate analgesic
CPT/HCPCS: 80048; 80076; 82550; 84443; 85025; 93005; 93041; 94760; 96361; 96374; 99285; G0480; J2060

== ENCOUNTER → 2020-06-03 | Emergency (ER) | payer MEDICAID, OTHER ==
[~2020-06-03] MED LIST changes: +GABA600T4 PO; +HYDR-3363 PO; +NALOXONE 2MG/2ML SYRINGE (J2310 PER 1MG) ONE
[2020-07-19 16:51] LABS: BASO % 0.3 % (0.0-1.0); EOS # 0.1 10^3/uL (0.0-0.5); EOS % 1.4 % (0.0-3.0); HEMATOCRIT 37.2 % (42.0-52.0); LYMPH # 1.1 10^3/uL (1.5-5.0); LYMPH % 17.4 % (24.0-44.0); MEAN CORPUSCULAR HGB CONC 32.3 g/dl (32.0-36.5); MEAN CORPUSCULAR VOLUME 86.7 fl (80.0-96.0); MONO # 0.5 10^3/uL (0.0-0.8); MONO % 8.2 % (0.0-5.0); NEUTROPHILS # 4.7 10^3/uL (1.5-8.5); NEUTROPHILS % 72.4 % (36.0-66.0); PLATELET COUNT, AUTOMATED 175 10^3/uL (150-450); RED BLOOD COUNT 4.29 10^6/uL (4.30-6.10); WHITE BLOOD COUNT 6.5 10^3/uL (4.0-10.0)
[2020-08-15 15:51] LABS: ABG pH (ARTERIAL) 7.241 UNITS (7.350-7.450)
[2020-08-15 15:52] LABS: ABG BASE EXCESS -2.7 (-2.0-2.0); ABG HCO3 25.4 MEQ/L (22.0-26.0); ABG O2 SATURATION 98.7 % (95.0-99.0); ABG PARTIAL PRESSURE CO2 60.5 mmHg (35.0-45.0); ABG STANDARD HCO3 22.2 MEQ/L (22.0-26.0); ABG TOTAL CO2 27.3 MEQ/L (22.0-29.0)
[2020-08-15 15:54] LABS: ACETAMINOPHEN LEVEL < 2.0 UG/ML (10.0-30.0); ALBUMIN 3.6 GM/DL (3.2-5.2); ALT/SGPT 24 U/L (12-78); BILIRUBIN,DIRECT 0.1 MG/DL (0.0-0.2); BILIRUBIN,TOTAL 0.3 MG/DL (0.2-1.0); BLOOD UREA NITROGEN 9 MG/DL (7-18); CALCIUM LEVEL 8.3 MG/DL (8.5-10.1); CARBON DIOXIDE LEVEL 29 MEQ/L (21-32); CHLORIDE LEVEL 105 MEQ/L (98-107); CPK CREATINE PHOSPHOKINASE 202 U/L (39-308); CREATININE FOR GFR 0.86 MG/DL (0.70-1.30); ETHYL ALCOHOL (ETHANOL) < 0.003 % (0.000-0.010); GLOMERULAR FILTRATION RATE > 60.0 (>60); GLUCOSE, FASTING 81 MG/DL (70-100); POTASSIUM SERUM 4.1 MEQ/L (3.5-5.1); SALICYLATE LEVEL < 1.7 MG/DL (5.0-30.0); SODIUM LEVEL 139 MEQ/L (136-145); TOTAL PROTEIN 7.6 GM/DL (6.4-8.2)
== END | disposition home or self-care (01) ==
LOC: M ED 19:35
DX: M79.605 Pain in left leg (principal)
CPT/HCPCS: 70450; 72125; 80048; 80076; 82550; 82803; 84443; 85025; 99284; G0480; J2310

== ENCOUNTER 2020-12-28 07:42 | Inpatient (IN) | payer MEDICAID, OTHER, SELFPAY ==
[~2020-12-28] VITALS: Ht 172.7 cm; Wt 63.6 kg
[~2020-12-28 07:42] MED LIST changes: -NALOXONE 2MG/2ML SYRINGE (J2310 PER 1MG) ONE
[2020-12-28] MEDS ORDERED: NS 1,000 ML IV ONE ×3 (07:50→09:15)
[2020-12-28] MEDS ORDERED: LORazepam 2 MG/ML VIAL As Ordered ONE (07:50)
[2020-12-28] MEDS ORDERED: LORazepam 2 MG/ML VIAL IV STA (08:02)
--- OUTSIDE RECORDS SUMMARY | 2020-12-28 08:05 | CCD ---
Author Author [facility] Organization [facility] Address Unknown Phone Unavailable Care Team Providers Care Wire Preparation Worker Name Role Phone Pasha Benites MD Unavailable Unavailable Pasha Benites MD Unavailable Unavailable Pasha Benites MD Unavailable Unavailable Pasha Benites MD Unavailable Unavailable Pasha Benites MD Unavailable Unavailable Pasha Benites MD Unavailable Unavailable Pasha Benites MD Unavailable Unavailable Pasha Benites MD Unavailable Unavailable Pasha Benites MD Unavailable Unavailable Pasha Benites MD Unavailable Unavailable Pasha Benites MD Unavailable Unavailable Pasha Benites MD Unavailable Unavailable Pasha Benites MD Unavailable Unavailable Pasha Benites MD Unavailable Unavailable Pasha Benites MD Unavailable Unavailable Pasha Benites MD Unavailable Unavailable Pasha Benites MD Unavailable Unavailable Pasha Benites MD Unavailable Unavailable Pasha Benites MD Unavailable Unavailable Pasha Benites MD Unavailable Unavailable Pasha Benites MD Unavailable Unavailable Pasha Benites MD Unavailable Unavailable Pasha Benites MD Unavailable Unavailable Pasha Benites MD Unavailable Unavailable Pasha Benites MD Unavailable Unavailable Pasha Benites MD Unavailable Unavailable Pasha Benites MD Unavailable Unavailable Pasha Benites MD Unavailable Unavailable Pasha Benites MD Unavailable Unavailable Pasha Benites MD Unavailable Unavailable Pasha Benites MD Unavailable Unavailable Pasha Benites MD Unavailable Unavailable Pasha Benites MD Unavailable Unavailable Pasha Benites MD Unavailable Unavailable Pasha Benites MD Unavailable Unavailable Pasha Benites MD Unavailable Unavailable DAKSHA ERNST MD Unavailable Unavailable DAKSHA ERNST MD Unavailable Unavailable DAKSHA ERNST MD Unavailable Unavailable DAKSHA ERNST MD Unavailable Unavailable DAKSHA ERNST MD Unavailable Unavailable DAKSHA ERNST MD Unavailable Unavailable DAKSHA ERNST MD Unavailable Unavailable Nikki DRUMMOND MD Unavailable Unavailable Nikki DRUMMOND MD Unavailable Unavailable Nikki DRUMMOND MD Unavailable Unavailable Nikki DRUMMOND MD Unavailable Unavailable Nikki DRUMMOND MD Unavailable Unavailable Nikki DRUMMOND MD Unavailable Unavailable Nikki DRUMMOND MD Unavailable Unavailable Nikki DRUMMOND MD Unavailable Unavailable Nikki DRUMMOND MD Unavailable Unavailable Nikki DRUMMOND MD Unavailable Unavailable Nikki DRUMMOND MD Unavailable Unavailable Nikki DRUMMOND MD Unavailable Unavailable Nikki DRUMMOND MD Unavailable Unavailable Nikki DRUMMOND MD Unavailable Unavailable Nikki DRUMMOND MD Unavailable Unavailable Nikki DRUMMOND MD Unavailable Unavailable Nikki DRUMMOND MD Unavailable Unavailable Nikki DRUMMOND MD Unavailable Unavailable Nikki DRUMMOND MD Unavailable Unavailable Nikki DRUMMOND MD Unavailable Unavailable Nikki DRUMMOND MD Unavailable Unavailable Nikki DRUMMOND MD Unavailable Unavailable Nikki DRUMMOND MD Unavailable Unavailable Nikki DRUMMOND MD Unavailable Unavailable Nikki DRUMMOND MD Unavailable Unavailable Nikki DRUMMOND MD Unavailable Unavailable Nikki DRUMMOND MD Unavailable Unavailable Nikki DRUMMOND MD Unavailable Unavailable Nikki DRUMMOND MD Unavailable Unavailable Nikki DRUMMOND MD Unavailable Unavailable Nikki DRUMMOND MD Unavailable Unavailable Nikki DRUMMOND MD Unavailable Unavailable Nikki DRUMMOND MD Unavailable Unavailable Nikki DRUMMOND MD Unavailable Unavailable Nikki DRUMMOND MD Unavailable Unavailable Nikki DRUMMOND MD Unavailable Unavailable Nikki DRUMMOND MD Unavailable Unavailable Nikki DRUMMOND MD Unavailable Unavailable Nikki DRUMMOND MD Unavailable Unavailable Nikki DRUMMOND MD Unavailable Unavailable Nikki DRUMMOND MD Unavailable Unavailable Nikki DRUMMOND MD Unavailable Unavailable Nikki DRUMMODN MD Unavailable Unavailable Nikki DRUMMOND MD Unavailable Unavailable Nikki DRUMMOND MD Unavailable Unavailable Nikki DRUMMOND MD Unavailable Unavailable CRISTY, Nikki KIRKLAND MD Unavailable Unavailable CRISTY, Nikki KIRKLAND MD Unavailable Unavailable CRISTY, Nikki KIRKLAND MD Unavailable Unavailable CRISTY, T MARITA COKER Unavailable Unavailable CRISTY, T MARITA COKER Unavailable Unavailable CRISTY, T MARITA COKER Unavailable Unavailable CRISTY, Nikki KIRKLAND MD Unavailable Unavailable CRISTY, Nikki KIRKLAND MD Unavailable Unavailable CRISTY, Nikki KIRKLAND MD Unavailable Unavailable CRISTY, Nikki KIRKLAND MD Unavailable Unavailable CRISTY, Nikki KIRKLAND MD Unavailable Unavailable CRISTY, T MARITA COKER Unavailable Unavailable CRISTY, T MARITA COKER Unavailable Unavailable CRISTY, T MARITA COKER Unavailable Unavailable CRISTY, T MARITA COKER Unavailable Unavailable CRISTY, Nikki KIRKLAND MD Unavailable Unavailable CRISTY, T MARITA COKER Unavailable Unavailable CRISTY, T MARITA COKER Unavailable Unavailable CRISTY, T MARITA COKER Unavailable Unavailable CRISTY, T MARITA COKER Unavailable Unavailable CRISTY, T MARITA COKER Unavailable Unavailable CRISTY, T MARITA COKER Unavailable Unavailable CRISTY, Nikki KIRKLAND MD Unavailable Unavailable CRISTY, Nikki KIRKLAND MD Unavailable Unavailable CRISTY, Nikki KIRKLAND MD Unavailable Unavailable CRISTY, T MARITA COKER Unavailable Unavailable CRISTY, T MARITA COKER Unavailable Unavailable CRISTY, T MARITA COKER Unavailable Unavailable CRISTY, Nikki KIRKLAND MD Unavailable Unavailable CRISTY, T MARITA COKER Unavailable Unavailable CRISTY, T MARITA COKER Unavailable Unavailable CRISTY, T MARITA COKER Unavailable Unavailable CRISTY, T MARITA COKER Unavailable Unavailable CRISTY, T MARITA COKER Unavailable Unavailable CRISTY, T MARITA COKER Unavailable Unavailable CRISTY, Nikki KIRKLAND MD Unavailable Unavailable CRISTY, T MARITA COKER Unavailable Unavailable Kristi Ernst MD Unavailable Unavailable Re-disclosure Warning The records that you are about to access may contain information from federally-assisted alcohol or drug abuse programs. If such information is present, then the following federally mandated warning applies: This information has been disclosed to you from records protected by federal confidentiality rules (42 CFR part 2). The federal rules prohibit you from making any further disclosure of this information unless further disclosure is expressly permitted by the written consent of the person to whom it pertains or as otherwise permitted by 42 CFR part 2. A general authorization for the release of medical or other information is NOT sufficient for this purpose. The Federal rules restrict any use of the information to criminally investigate or prosecute any alcohol or drug abuse patient.The records that you are about to access may contain highly sensitive health information, the redisclosure of which is protected by Article 27-F of the [facility] Public Health law. If you continue you may have access to information: Regarding HIV / AIDS; Provided by facilities licensed or operated by the [facility] Office of Mental Health; or Provided by the [facility] Office for People With Developmental Disabilities. If such information is present, then the following [facility] mandated warning applies: This information has been disclosed to you from confidential records which are protected by state law. State law prohibits you from making any further disclosure of this information without the specific written consent of the person to whom it pertains, or as otherwise permitted by law. Any unauthorized further disclosure in violation of state law may result in a fine or custodial sentence or both. A general authorization for the release of medical or other information is NOT sufficient authorization for further disc losure. Allergies and Adverse Reactions Type Description Substance Reaction Status Data Source(s ) Drug allergy Drug allergy Fish Containing Products Anaphylactic Shock [facility] Encounters Encounter Providers Location Date Indications Data Source(s ) Outpatient [address] [place] [address] 08/16/2020 12:00:00 AM EDT - 12/25/2020 09:31:00 AM EST [facility] ([facility] [place]) Patient discharged. Inpatient Attender: Daksha Harmon nder: DAKSHA ERNST MDAdmitter: DAKSHA ERNST MD [facility] 06/12/2020 02:07:00 PM EDT - 06/15/2020 11:45:00 AM EDT PSYCHOACTIVE SUBSTANCE DEPENDENCE [facility] PSYCHOACTIVE SUBSTANCE DEPENDENCE Patient discharged. Unknown [address] [facility] [address] 04/27/2020 12:00:00 AM EDT eCW1 ([facility]) Outpatient Attender: MARITA CHRISTINA 02/14/2020 09:01:00 P M EDT [facility] Outpatient Attender: Mairta Benites MD [facility] 01/15 02:22:00 PM EDT [id number] [facility] [id number] Outpatient Attender: MARITA CHRISTINA 12/09/2019 08:40:00 A M [facility] Medications Medication Brand Name Start Date Product Form Dose Route Admi nistrative Instructions Pharmacy Instructions Status Indications Reaction Description Data Source(s) 8-2 mg 05/17/2020 12:00:00 AM EDT film [address] PL[address] ONE FILM UNDER THE TONGUE EVERY MORNING MAXIMUM DAILY DOSE = 1 PLACE ONE FILM UNDER THE TONGUE EVERY MORNING MAXIMUM DAILY DOSE = 1 SOLD: 05/19/2020 [facility] 8-2 mg 05/15/2020 12:00:00 AM EDT film 2 PLACE ONE FILM UNDER THE TONGUE EVERY MORNING MAXIMUM DAILY DOSE = [address] ONE FILM UNDER THE TONGUE EVERY MORNING MAXIMUM DAILY DOSE = 1 FILM SOLD: 05/16/2020 [facility] 8-2 mg 05/09/2020 12:00:00 AM EDT film 7 PLACE ONE FILM UNDER THE TONGUE EVERY MORNING, MAXIMUM DAILY DOSE = 1 PLACE ONE FILM UNDER THE TONGUE EVERY MORNING, MAXIMUM DAILY DOSE = 1 SOLD: 05/09/2020 [facility] 8-2 mg 05/01/2020 12:00:00 AM EDT film 7 PLACE ONE FILM UNDER THE TONGUE EVERY MORNING MAXIMUM DAILY DOSE = [address] ONE FILM UNDER THE TONGUE EVERY MORNING MAXIMUM DAILY DOSE = 1 FILM SOLD: 05/02/2020 [facility] 8-2 mg 04/24/2020 12:00:00 AM EDT film 7 PLACE ONE FILM UNDER THE TONGUE EVERY MORNING MAXIMUM DAILY DOSE = 1 PLACE ONE FILM UNDER THE TONGUE EVERY MORNING MAXIMUM DAILY DOSE = 1 SOLD: 04/24/2020 [facility] 4-1 mg 04/19/2020 12:00:00 AM EDT film 7 PLACE ONE FILM UNDER THE TONGUE EVERY MORNING MAXIMUM DAILY DOSE = [address] ONE FILM UNDER THE TONGUE EVERY MORNING MAXIMUM DAILY DOSE = 1 FILM SOLD: 04/19/2020 [facility] 4 mg/actuation 04/17/2020 12:00:00 AM EDT spray,non-aerosol 2 SPRAY ONE SPRAY IN NOSTRIL(S) NEEDED SPRAY ONE SPRAY IN NOSTRIL(S) NEEDED SOLD: 04/19/2020 [facility] 4-1 mg 04/16/2020 12:00:00 AM EDT film 2 PLACE ONE HALF FILM UNDER TONGUE EVERY MORNING. MAY REPEAT ONCE, MAXIMUM DAILY DOSE = [address] ONE HALF FILM UNDER TONGUE EVERY MORNING. MAY REPEAT ONCE, MAXIMUM DAILY DOSE = 1 FILM SOLD: 04/17/2020 [facility] 25 mg 11/27/2019 12:00:00 AM EST tablet 90 TAKE ONE TABLET BY MOUTH THREE TIMES A DAY NEEDED TAKE ONE TABLET BY MOUTH THREE TIMES A DAY NEEDED S OLD: 11/28/2019 [facility] Clonidine Hydrochloride 0.2 MG Oral Tablet CLONIDINE HCL 11/27/2019 12:00:00 AM EST tablet 30 TAKE ONE TABLET BY MOUTH AT BEDTIME TAKE ONE TABLET BY MOUTH AT BEDTIME SOLD: 11/28/2019 [facility] 8-2 mg 11/27/2019 12:00:00 AM EST film 30 PLACE THREE FILMS UNDER THE TONGUE EVERY DAY MAXIMUM DAILY DOSE = 3 PLACE THREE FILMS UNDER THE TONGUE EVERY DAY MAXIMUM DAILY DOSE = 3 SOLD: 11/28/2019 [facility] 25 mcg (1,000 unit) 11/27/2019 12:00:00 AM EST tablet 60 TAKE TWO TABLETS BY MOUTH EVERY DAY TAKE TWO TABLETS BY MOUTH EVERY DAY SOLD: 11/28/2019 [facility] 1,250 mcg (50,000 unit) 11/27/2019 12:00:00 AM EST capsule 4 TAKE 1 CAPSULE BY MOUTH WEEKLY TAKE 1 CAPSULE BY MOUTH WEEKLY SOLD: 11/28/2019 [facility] 600 mg 11/27/2019 12:00:00 AM EST tablet 90 TAKE ONE TABLET BY MOUTH THREE TIMES A DAY TAKE ONE TABLET BY MOUTH THREE TIMES A DAY SOLD: 11/28/2019 [facility] Insurance Providers Payer name Policy type / Coverage type Policy ID Covered libertarian ID Covered libertarian's relationship to shaffer Policy Shaffer Plan Information [facility] [id number] [facility] [id number] [id number] [id number] [facility] [id number] SP [id number] MEDICAID P [id number] S [id number] [place] [id number] SP [id number] [facility] [id number] SP [id number] MEDICAID [id number] Unemployed [id number] [facility] [id number] [facility] [id number] [facility] [id number] S [id number] Medicaid S [id number] S [id number] [facility] P [id number] S [id number] [facility] [id number] SP [id number] [facility] [id number] SP [id number] [facility] [id number] SP [id number] MEDICAID [id number] SP [id number] MEDICAID W [id number] S [id number] OTHER WORKERS COMPENSATI P [id number] S [id number] Problems, Conditions, and Diagnoses Code Display Name Description Problem Type Effective Dates Data Source(s) F41.1 Generalized anxiety disorder Generalized anxiety disor ange Diagnosis 10/09/2020 12:00:00 AM EST [facility] ([facility]) F11.20 Opioid dependence, uncomplicated Opioid use disorder, Moderate Diagnosis 10/09/2020 12:00:00 AM EST [facility] ([facility]) F15.20 Other stimulant dependence, uncomplicate d Amphetamine-type substance use disorder, Severe Diagnosis 10/09/2020 12:00:00 AM EST [facility] ([facility]) B02.9 Zoster without complications ZOSTER WITHOUT COMPLICATI ONS Diagnosis 06/12/2020 02:07:00 PM [facility] R07.9 Chest pain, unspecified CHEST PAIN, UNSPECIFIED Diagno sis 06/12/2020 02:07:00 PM [facility] F41.9 Anxiety disorder, unspecified ANXIETY DISORDER, UNSPEC IFIED Diagnosis 06/12/2020 02:07:00 PM [facility] F32.9 Major depressive disorder, single episod e, unspecified MAJOR DEPRESSIVE DISORDER, SINGLE EPISODE, UNSPECIFIED Diagnosis 06/12/2020 02:07:00 PM [facility] F17.210 Nicotine dependence, cigarettes, uncompl icated NICOTINE DEPENDENCE, CIGARETTES, UNCOMPLICATED Diagnosis 06/12/2020 02:07:00 PM [facility] F11.20 Opioid dependence, uncomplicated OPIOID DEPENDEN CE, UNCOMPLICATED Diagnosis 06/12/2020 02:07:00 PM [facility] F14.20 Cocaine dependence, uncomplicated COCAINE DEPEND ENCE, UNCOMPLICATED Diagnosis 06/12/2020 02:07:00 PM [facility] F15.20 Other stimulant dependence, uncomplicate d OTHER STIMULANT DEPENDENCE, UNCOMPLICATED Diagnosis 06/12/2020 02:07:00 PM [facility] Surgeries/Procedures Procedure Description Date Indications Data Source(s) Individual Counseling for Substance Abuse Treatment, C ontinuing Care INDIV BINDING CUTTER FOR SUBSTANCE ABUSE TREATMENT, CONTINUING CARE 06/12/2020 12:00:00 AM [facility] Individual Counseling for Substance Abuse Treatment, C ognitive-Behavioral INDIV BINDING CUTTER FOR SUBSTANCE ABUSE, COGNITIVE BEHAVIORAL 06/12/2020 12:00:00 AM EDT [facility] Group Counseling for Substance Abuse Treatment, Motiva tional Enhancement GROUP BINDING CUTTER FOR SUBSTANCE ABUSE, MOTIVATIONAL ENHANCE 06/12/2020 12:00:00 AM EDT [facility] Group Counseling for Substance Abuse Treatment, Spirit ual GROUP COUNSELING FOR SUBSTANCE ABUSE TREATMENT, SPIRITUAL 06/12/2020 12:00:00 AM EDT [facility] Group Counseling for Substance Abuse Treatment, Interp ersonal GROUP BINDING CUTTER FOR SUBSTANCE ABUSE TREATMENT, INTERPERSONAL 06/12/2020 12:00:00 AM EDT [facility] Results ID Date Data Source [id number] 08/06/2020 11:00:00 AM EDT [facility] Name Value Range Interpretation Code Description Data Benita rce(s) Supporting Document(s) SARS coronavirus 2 RNA [facility] This lab was ordered by [facility] and reported by [facility]. ID Date Data Source [id number] 06/14/2020 01:38:00 PM EDT [facility] Name Value Range Interpretation Code Description Data Benita rce(s) Supporting Document(s) HIV 1/2 Ab p24 Ag Screen Nonreactive Normal (applies to non-numeric results) [facility] ID Date Data Source [id number] 06/14/2020 06:53:00 PM EDT [facility] Name Value Range Interpretation Code Description Data Benita rce(s) Supporting Document(s) Opiate Screen,Urine Negative [facility] Amphetamine Screen,Urine Negative Normal (applies to non -numeric results) [facility] Benzodiazepines Scrn,Ur result Negative N ormal (applies to non-numeric results) [facility] Cocaine Screen,Urine Negative Normal (applies to non-num [place] results) [facility] Methadone Screen,Urine Negative Normal (applies to non-n umeric results) [facility] Cannabinoid Screen, Ur Negative Normal (applies to non-n umeric results) [facility] Therapeutic Drug Ranges for Emergency an d Rehabilitation Threshold Levels (ng/mL) Cocaine 300 Opiates 300 Cannabinoids 50 Barbiturates 200 Benzodiazepine 200 Methadone 300 Amphetamines 1000 All positive find ings are presumptive and unconfirmed. Confirmation of positive results are performed only at request of provider. Unconfirmed results must not be used for non-medical purposes (i.e. pre-employment and legal purposes) ID Date Data Source [id number] 06/13/2020 11:11:00 AM EDT [facility] Name Value Range Interpretation Code Description Data Benita rce(s) Supporting Document(s) Hep C Ab-T Test Nonreactive Normal (applies to non-numeric results) [facility] ID Date Data Source [id number] 06/13/2020 11:11:00 AM EDT [facility] Name Value Range Interpretation Code Description Data Benita rce(s) Supporting Document(s) Hep Bs Ag Result T-Test Nonreactive Normal (applies to non -numeric results) [facility] ID Date Data Source [id number] 06/13/2020 11:11:00 AM EDT [facility] Name Value Range Interpretation Code Description Data Benita rce(s) Supporting Document(s) HAVM Nonreactive Normal (applies to non-numeric resu lts) [facility] ID Date Data Source [id number] 06/13/2020 11:11:00 AM EDT [facility] Name Value Range Interpretation Code Description Data Benita rce(s) Supporting Document(s) Vitamin D,Total (25OH) 30.0-100.0 Normal (applies to non-n umeric results) [facility] Reference Range: <10 ng/mL: Deficien t 10-30 ng/mL: Insufficient 30-100 ng/mL: Sufficient >100 ng/mL: Toxicity possible ID Date Data Source [id number] 06/13/2020 11:12:00 AM EDT [facility] Name Value Range Interpretation Code Description Data Benita rce(s) Supporting Document(s) Syphilis Serology Nonreactive Normal (applies to non-numer ic results) [facility] ID Date Data Source [id number] 06/13/2020 10:28:00 AM EDT [facility] Name Value Range Interpretation Code Description Data Benita rce(s) Supporting Document(s) Sodium 141 mmol/L 137-145 Normal (applies to non-numeric resul ts) [facility] Potassium 3.5-5.1 Normal (applies to non-numeric resul ts) [facility] Chloride 108 mmol/L 98-112 Normal (applies to non-numeric resul ts) [facility] Carbon Dioxide CO2 22.0-33.0 Normal (applies to non-numer ic results) [facility] Anion Gap 4.0-11.0 Below low normal [facility] BUN 12 mg/dL 9-20 Normal (applies to non-numeric resul ts) [facility] Creatinine 0.80-1.50 Normal (applies to non-numeric resul ts) [facility] GFR >60 Normal (applies to non-numeric results) [facility] Result based on MDRD formula. Glucose Level 85 mg/dL 74-99 Normal (applies to non-numeric re sults) [facility] The reference range is only applicable w hen fasting. Calcium-Uncorrected 8.4-10.2 Normal (applies to non-nume maya results) [facility] Corrected Calcium 8.4-10.2 Normal (applies to non-numeri c results) [facility] Bilirubin,Total 0.2-1.3 Normal (applies to non-numeric results) [facility] Bilirubin,Direct 0.0-0.3 Normal (applies to non-numeric results) [facility] SGOT(AST) 17 U/L 17-59 Normal (applies to non-numeric resul ts) [facility] SGPT(ALT) 18 U/L 21-72 Below low normal [facility] Alkaline Phosphatase 108 U/L 38-126 Normal (applies to non-num [place] results) [facility] can increase Alkaline Phosp le vels up to 2 times the normal adult value. Normal values for children and adolescents are 2 to 3 times the normal adult value. CPK 138 U/L 39-308 Normal (applies to non-numeric resul ts) [facility] Total Protein 6.3-8.2 Normal (applies to non-numeric re sults) [facility] Albumin 3.5-5.0 Below low normal [facility] Thyroid Stimulate Hormone TSH 0.358-3.740 No rmal (applies to non-numeric results) [facility] ID Date Data Source [id number] 06/13/2020 10:28:00 AM EDT [facility] Name Value Range Interpretation Code Description Data Benita rce(s) Supporting Document(s) Magnesium 1.80-2.40 Normal (applies to non-numeric resul ts) [facility] ID Date Data Source [id number] 06/13/2020 10:28:00 AM EDT [facility] Name Value Range Interpretation Code Description Data Benita rce(s) Supporting Document(s) C-Reactive Protein,Wide Range <3.00 Normal (applies t o non-numeric results) [facility] ID Date Data Source [id number] 06/13/2020 10:02:00 AM EDT [facility] Name Value Range Interpretation Code Description Data Benita rce(s) Supporting Document(s) White Blood Count 4.8-10.8 Normal (applies to non-numeri c results) [facility] Red Blood Count 4.35-6.08 Below low normal [facility] Hemoglobin 13.0-17.5 Below low normal [facility] Hematocrit 37.7-51.0 Below low normal [facility] Mean Corpuscular Volume 80-94 Normal (applies to non- numeric results) [facility] Mean Corpuscular Hemoglobin 27.0-33.0 Normal (appli es to non-numeric results) [facility] Mean Corpuscular HGB Conc 32.0-36.0 Normal (applies to no n-numeric results) [facility] Red Cell Distribution Width 11.5-14.5 Normal (appli es to non-numeric results) [facility] Platelet Count 218 X10 3/uL 130-450 Normal (applies to non-numeric results) [facility] Mean Platelet Volume 9.6-13.1 Normal (applies to non-num [place] results) [facility] Imm Grans% (AUTO) 0 % 0-2 Normal (applies to non-numeri c results) [facility] Neutrophils % (AUTO) 45 % 40-75 Normal (applies to non-num [place] results) [facility] Lymphocytes % (AUTO) 43 % 21-46 Normal (applies to non-num [place] results) [facility] Monocytes % (AUTO) 8 % 5-12 Normal (applies to non-numer ic results) [facility] Eosinophils % (AUTO) 3 % 1-5 Normal (applies to non-num [place] results) [facility] Basophils % (AUTO) 1 % 0-1 Normal (applies to non-numer ic results) [facility] Imm Grans# (AUTO) 0.0-0.5 Normal (applies to non-numeri c results) [facility] Neutrophils # (AUTO) 1.5-8.1 Normal (applies to non-num [place] results) [facility] Lymphocytes # (AUTO) 1.0-3.1 Normal (applies to non-num [place] results) [facility] Monocytes # (AUTO) 0.2-1.3 Normal (applies to non-numer ic results) [facility] Eosinophils# (AUTO) 0.0-0.5 Normal (applies to non-nume may[place] results) [facility] Basophils # (AUTO) 0.0-0.1 Normal (applies to non-numer ic results) [facility] ID Date Data Source [id number] 06/14/2020 09:23:00 AM EDT [facility] Hospital Name: GREGORIA MCDANIEL : 1990 A ge/Sex: 30M Ordering Provider: Stormy MORRIS Med Rec #: [id number] Reg Status: ADM IN Room #: 127-2 Date of Service: 06/13/20 Report Number: [id number] cc:Stormy MORRIS Send Report To: [id number] XRP/XR Chest 2 View [Pa & Lat] Reason for exam: chest pain FINDINGS: The cardiac and mediastinal silhouettes appear normal and the lungs are clear. The bones and soft tissues are normal. The upper abdomen is unremarkable. IMPRESSION: No acute disease identifiable. REPORT DICTATED BY MARÍA ARRIAGA, REVIEWED AND SIGNED BY DR. HERRERA. Fluoroscopy time in seconds: 0 Number of Exposures: Time Portable Image Performed: Contrast Agent in ml: Method of Administration: REPORT SIGNATURE ON FILE Reported By: María Herrera MD <Electronically signed by Kingston Herrera MD> 06/14/20 1015 Dictation Date/Time: 06/13/20 1503 Transcribed Date/Time: 06/14/20 0923 [facility] Psychiatrist: THELMA Name Value Range Interpretation Code Description Data Benita rce(s) Supporting Document(s) ID Date Data Source [id number] 06/14/2020 09:01:00 AM EDT [facility] Name: GREGORIA MCDANIEL : 1990 A ge/Sex: 30M Ordering Provider: Stormy MORRIS Med Rec #: [id number] Reg Status:ADM IN Room #: 127-2 Date of Service: 06/13/20 Report Number: [id number] cc: Stormy MORRIS; Daksha Ernst MD Send Report To: Reason for exam: Chest Pain SINUS RHYTHM WITH SHORT NE INTERVAL BORDERLINE ECG cw 03/21/13 there is no sign change Physician Roving Technician: Otis Sarabia M.D. ECG HEART RATE: 63 /min ECG RR INTERVAL: 939 ms ECG P DURATION: 95 ms ECG QRS DURATION: 106 ms ECG NE INTERVAL: 104 ms ECG QT INTERVAL: 416 ms ECG QTC INTERVAL: 421 ms Q-T dispersion: ms ECG P AXIS: 76 deg ECG QRS AXIS: 86 deg ECG T AXIS: 79 deg REPORT SIGNATURE ON FILE 06/14/20901 Reported By: Otis Sarabia MD, [facility] <<Signature on File>> Exam Date/Time: 06/13/20 1327 Order #: [id number] Dictation Date/Time: 06/14/20900 Transcribed Date/Time: 06/14/20900 [facility] Psychiatrist: JUAN Name Value Range Interpretation Code Description Data Benita rce(s) Supporting Document(s) ID Date Data Source [id number] 06/12/2020 06:08:00 PM EDT [facility] Name Value Range Interpretation Code Description Data Benita rce(s) Supporting Document(s) Opiate Screen,Urine Negative [facility] Amphetamine Screen,Urine Negative Normal (applies to non -numeric results) [facility] Benzodiazepines Scrn,Ur result Negative N ormal (applies to non-numeric results) [facility] Cocaine Screen,Urine Negative [facility] Methadone Screen,Urine Negative Normal (applies to non-n umeric results) [facility] Cannabinoid Screen, Ur Negative Normal (applies to non-n umeric results) [facility] Therapeutic Drug Ranges for [facility] Threshold Levels (ng/mL) Cocaine 300 Opiates 300 Cannabinoids 50 Barbiturates 200 Benzodiazepine 200 Methadone 300 Amphetamines 1000 All positive find ings are presumptive and unconfirmed. Confirmation of positive results are performed only at request of provider. Unconfirmed results must not be used for non-medical purposes (i.e. pre-employment and legal purposes) ID Date Data Source [id number] 06/12/2020 05:34:00 PM EDT [facility] Name Value Range Interpretation Code Description Data Benita rce(s) Supporting Document(s) Color,Urine Yellow Normal (applies to non-numeric resu lts) [facility] Clarity,Urine Clear [facility] ospital Specific Clio,Urine 1.001-1.030 Normal (applies to non- numeric results) [facility] PH,Urine 5.0-8.0 Normal (applies to non-numeric resul ts) [facility] Protein,Urine Negative Normal (applies to non-numeric re sults) [facility] Glucose,Urine (UA) Negative Normal (applies to non-numer ic results) [facility] Ketones,Urine Negative Normal (applies to non-numeric re sults) [facility] Blood,Urine Negative Normal (applies to non-numeric resu lts) [facility] Bilirubin,Urine Negative Normal (applies to non-numeric results) [facility] Urobilinogen,Urine Norm 0.2-1 Normal (applies to non-numer ic results) [facility] Leukocyte Esterase,Urine Negative Normal (applies to non -numeric results) [facility] Nitrite,Urine Negative Normal (applies to non-numeric re sults) [facility] ID Date Data Source [id number] 01/17/2020 07:12:00 PM EDT [facility] Name: GREGORIA MCDANIEL DIN: [id number] F acility: [facility] : 1990 Physician: Marita Benites MD Date of Service: 01/16/20 EXAM: CHEST The lungs, mediastinum and chest wall are unremarkable. cc: Dictation Date/Time: 01/17/20 173 <Electronically signed by Kingston Herrera MD> Transcribed Date/Time: 01/17/20191101/18/20 0803 [facility] Psychiatrist: JENNIFER Name Value Range Interpretation Code Description Data Benita rce(s) Supporting Document(s) Procedure Vital Signs ID Date Data Source [id number] 06/21/2020 10:59:00 AM EDT [facility] Name Value Range Interpretation Code Description Data Source(s) Weight Measurement Method 1 1 [facility] Weight (Calculated Kilograms) 60.78 60.78 [facility] Weight 2144 2144 [facility] Temperature Source 7 7 [facility] Temperature 97.7 97.7 [facility] Respiratory Effort 1 1 [facility] Respiratory Rate 15 15 [facility] Pulse Assessment Method 4 4 [facility] Pulse Rate 78 78 [facility] Height (Calculated Centimeters) 172.72 172. 72 [facility] Height 68 68 [facility] Blood Pressure 122/68 122/68 [facility] Body Mass Index (BMI) 20.3 20.3 [facility] Weight Measurement Method 1 1 [facility] Weight (Calculated Kilograms) 60.78 60.78 [facility] Weight 2144 2144 [facility] Temperature Source 7 7 [facility] Temperature 97.7 97.7 [facility] Respiratory Effort 1 1 [facility] Respiratory Rate 15 15 [facility] Pulse Assessment Method 4 4 [facility] Pulse Rate 78 78 [facility] Height (Calculated Centimeters) 172.72 172. 72 [facility] Height 68 68 [facility] Blood Pressure 122/68 122/68 [facility] Body Mass Index (BMI) 20.3 20.3 [facility] Weight Measurement Method 1 1 [facility] Weight (Calculated Kilograms) 60.78 60.78 [facility] Weight 2144 2144 [facility] Temperature Source 7 7 [facility] Temperature 97.7 97.7 [facility] Respiratory Effort 1 1 [facility] Respiratory Rate 15 15 [facility] Pulse Assessment Method 4 4 [facility] Pulse Rate 78 78 [facility] Height (Calculated Centimeters) 172.72 172. 72 [facility] Height 68 68 [facility] Blood Pressure 122/68 122/68 [facility] Body Mass Index (BMI) 20.3 20.3 [facility] Weight Measurement Method 1 1 [facility] Weight (Calculated Kilograms) 60.78 60.78 [facility] Weight 2144 2144 [facility] Temperature Source 7 7 [facility] Temperature 97.7 97.7 [facility] Respiratory Effort 1 1 [facility] Respiratory Rate 14 14 [facility] Pulse Assessment Method 4 4 [facility] Pulse Rate 103 103 [facility] Height (Calculated Centimeters) 172.72 172. 72 [facility] Height 68 68 [facility] Blood Pressure 128/74 128/74 [facility] Body Mass Index (BMI) 20.3 20.3 [facility] Weight Measurement Method 1 1 [facility] Weight (Calculated Kilograms) 60.78 60.78 [facility] Weight 2144 2144 [facility] Temperature Source 7 7 [facility] Temperature 97.7 97.7 [facility] Respiratory Effort 1 1 [facility] Respiratory Rate 16 16 [facility] Pulse Assessment Method 4 4 [facility] Pulse Rate 103 103 [facility] Height (Calculated Centimeters) 172.72 172. 72 [facility] Height 68 68 [facility] Blood Pressure 128/74 128/74 [facility] Body Mass Index (BMI) 20.3 20.3 [facility] Weight Measurement Method 1 1 [facility] Weight (Calculated Kilograms) 60.78 60.78 [facility] Weight 2144 2144 [facility] Temperature Source 7 7 [facility] Temperature 97.7 97.7 [facility] Respiratory Effort 1 1 [facility] Respiratory Rate 14 14 [facility] Pulse Rate 114 114 [facility] Height (Calculated Centimeters) 172.72 172. 72 [facility] Height 68 68 [facility] Blood Pressure 125/75 125/75 [facility] Body Mass Index (BMI) 20.3 20.3 [facility] Weight (Calculated Kilograms) 68.04 68.04 [facility] Height (Calculated Centimeters) 170.18 170. 18 [facility] Body Mass Index (BMI) 23.5 23.5 [facility]
[2020-12-28 08:20] LABS: BASO # 0.1 10^3/uL (0.0-0.2); BASO % 0.3 % (0.0-1.0); EOS # 0.1 10^3/uL (0.0-0.5); EOS % 0.3 % (0.0-3.0); HEMOGLOBIN 12.8 g/dl (13.5-17.5); LYMPH # 2.1 10^3/uL (1.5-5.0); LYMPH % 9.5 % (24.0-44.0); MEAN CORPUSCULAR HEMOGLOBIN 29.4 pg (27.0-33.0); MEAN CORPUSCULAR HGB CONC 35.6 g/dl (32.0-36.5); MEAN CORPUSCULAR VOLUME 82.6 fl (80.0-96.0); MONO % 7.6 % (2.0-8.0); NEUTROPHILS # 17.6 10^3/uL (1.5-8.5); NEUTROPHILS % 81.5 % (36.0-66.0); PLATELET COUNT, AUTOMATED 176 10^3/uL (150-450); RED BLOOD COUNT 4.36 10^6/uL (4.30-6.10); WHITE BLOOD COUNT 21.6 10^3/uL (4.0-10.0)
[2020-12-28] MEDS ORDERED: DEXTROSE 50% 50 ML SYRINGE IV STA (08:48)
[2020-12-28 08:53] LABS: MONO # 1.7 10^3/uL (0.0-0.8)
[2020-12-28 08:55] LABS: ACETAMINOPHEN LEVEL < 2.0 UG/ML (10.0-30.0); ALBUMIN 4.5 GM/DL (3.2-5.2); ALT/SGPT 42 U/L (12-78); BILIRUBIN,DIRECT 0.2 MG/DL (0.0-0.2); BILIRUBIN,TOTAL 0.6 MG/DL (0.2-1.0); BLOOD UREA NITROGEN 24 MG/DL (7-18); CALCIUM LEVEL 8.2 MG/DL (8.5-10.1); CARBON DIOXIDE LEVEL 24 MEQ/L (21-32); CHLORIDE LEVEL 104 MEQ/L (98-107); CPK CREATINE PHOSPHOKINASE 3416 U/L (39-308); CREATININE FOR GFR 1.16 MG/DL (0.70-1.30); ETHYL ALCOHOL (ETHANOL) 0.003 % (0.000-0.010); GLOMERULAR FILTRATION RATE > 60.0 (>60); GLUCOSE, FASTING 58 MG/DL (70-100); POTASSIUM SERUM 3.8 MEQ/L (3.5-5.1); SALICYLATE LEVEL 2.2 MG/DL (5.0-30.0); SODIUM LEVEL 140 MEQ/L (136-145)
[2020-12-28] MEDS ORDERED: D5W/0.45% SODIUM CHLORIDE 1,000 ML IV SCH (11:45)
[2020-12-28] MEDS ORDERED: HALOPERIDOL 5MG/ML VIAL (J1630 PER 1) IV ONE (12:05)
--- NOTE | 2020-12-28 12:42 | REP ---
INDICATION: trauma. COMPARISON: Comparison head CT study June 03, 2020.. TECHNIQUE: Helical scanning is acquired. 5 mm axial images were reformatted. Coronal MPR images were generated. FINDINGS: Bone window settings demonstrate an intact bony calvarium. There is no evidence of skull fracture or incidental bony calvarial lesion. The visualized paranasal sinuses appear clear. No intraorbital abnormality is seen. On soft tissue window setting images; the lateral, third, and fourth ventricles are normal in size and position. Avalos-white differentiation pattern is normal above and below the tentorium. There are is no evidence of intracranial hemorrhage. No mass, edema, infarction, or midline shift is seen. No extra-axial fluid collection is appreciated. IMPRESSION: Negative noncontrast head CT. <Electronically signed by Theo Rosario > 12/28/20 7302
--- NOTE | 2020-12-28 12:44 | REP ---
INDICATION: trauma. COMPARISON: Comparison CT study June 03, 2020.. TECHNIQUE: Helical scanning is acquired and overlapping 2 mm high resolution axial images were generated and reviewed at bone and soft tissue window settings. Coronal and sagittal multiplanar re-formations images are generated. FINDINGS: There is no evidence of cervical spine element fracture. No skull base fracture is seen. Cervical vertebral body heights are preserved. Alignment is normal. Facet joints are normally aligned bilaterally at each cervical level on multiplanar re-formations images. There is no evidence of intraspinal or paraspinal hematoma. No extra vertebral abnormality is seen. There is developmental variant in the C1 vertebral body with incomplete fusion of the anterior arch and incomplete fusion of the posterior arch. This is unchanged. There is degenerative disc disease with anterior and posterior osteophytic ridging at C5-6 also unchanged. Diffuse disc bulging of the C5-6 disc is seen on axial CT images as before. There is uncovertebral spurring bilaterally at C5-6 right greater than left. There is evidence of a levoconvex upper thoracic curve on the coronal images. 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 Degenerative disc disease at C5-[address] study of the cervical spine without contrast. No fracture seen. <Electronically signed by Theo Rosario > 12/28/20 4595
[2020-12-28] MEDS ORDERED: GLUCOSE 4GM CHEW TABLET PO PRN (13:40)
[2020-12-28] MEDS ORDERED: GLUCAGON INJ 1MG VIAL SC PRN (13:40)
[2020-12-28] MEDS ORDERED: DEXTROSE 50% 50 ML SYRINGE IV PRN (13:40)
[2020-12-28] MEDS ORDERED: LORazepam 2 MG/ML VIAL IM PRN (14:10)
--- OUTSIDE RECORDS SUMMARY | 2020-12-28 14:32 | CCD ---
Author Author [facility] Organization [facility] Address Unknown Phone Unavailable Care Team Providers Care Nurses Assistant Name Role Phone Pasha Benites MD Unavailable [...] is protected by Article 27-F of the [facility] Public Health law. If you continue you may have access to information: Regarding HIV / AIDS; Provided by facilities licensed or operated by the [facility] Office of Mental Health; or Provided by the [facility] Office for People With Developmental Disabilities. If such information is present, then the following [facility] mandated warning applies: This information [...] law may result in a fine or longterm sentence or both. A general authorization for the release of medical or other information is NOT sufficient authorization for further disc losure. Allergies and Adverse Reactions Type Description Substance Reaction Status Data Source(s ) Drug allergy Drug allergy Fish Containing Products Anaphylactic Shock [facility] Encounters Encounter Providers Location Date Indications Data Source(s ) Outpatient [address] [place] [address] 08/16/2020 12:00:00 AM EDT - 12/25/2020 09:31:00 AM EST [facility] ([facility] [place]) Patient discharged. Inpatient Attender: Daksha Harmon nder: DAKSHA ERNST MDAdmitter: DAKSHA ERNST MD CPSCAORT-CHEPPDREH 06/12/2020 02:07:00 PM EDT - 06/15/2020 11:45:00 AM EDT PSYCHOACTIVE SUBSTANCE DEPENDENCE [facility] PSYCHOACTIVE SUBSTANCE DEPENDENCE Patient discharged. Unknown [address] [facility] [address] 04/27/2020 12:00:00 AM EDT eCW1 ([facility]) Outpatient Attender: MARITA CHRISTINA 02/14/2020 09:01:00 P M EDT [facility] Outpatient Attender: Marita Benites MD CPSCAORT-RADCOR 01/15 02:22:[id number] [facility] [id number] Outpatient Attender: MARITA CHRISTINA 12/09/2019 08:40:00 A M [facility] Medications Medication Brand Name Start Date Product [...] type / Coverage type Policy ID Covered alliance party ID Covered alliance party's relationship to shaffer Policy Shaffer Plan Information SELF PAY ONLY [id number] SP [id number] [facility] [id number] SP [id number] [facility] [id number] [facility] [id number] [facility] [id number] SP [id number] MEDICAID P [id number] S [id number] [place] [id number] SP [id number] [facility] [id number] SP [id number] MEDICAID [id number] Unemployed [id number] [facility] [id number] [facility] [id number] Managed Care - [facility] P [id number] S [id number] Medicaid S [id number] S [id number] Managed Care - [facility] P [id number] S [id number] [facility] [id number] SP [id number] [facility] [id number] SP [id number] [facility] [id number] MEDICAID [id number] SP [id number] MEDICAID W [id number] S [id number] OTHER WORKERS COMPENSATI P [id number] S [id number] Problems, Conditions, and Diagnoses Code Display Name Description Problem Type Effective Dates Data Source(s) F41.1 Generalized anxiety disorder Generalized anxiety disor ange Diagnosis 10/09/2020 12:00:00 AM EST [facility] ([facility]) F11.20 Opioid dependence, uncomplicated Opioid use disorder, Moderate Diagnosis 10/09/2020 12:00:00 AM EST [facility] ([facility]) F15.20 Other stimulant dependence, uncomplicate d Amphetamine-type substance use disorder, Severe Diagnosis 10/09/2020 12:00:00 AM EST [facility] ([facility]) B02.9 Zoster without complications ZOSTER WITHOUT COMPLICATI ONS Diagnosis 06/12/2020 02:07:00 PM [facility] R07.9 Chest pain, unspecified CHEST PAIN, UNSPECIFIED Diagno sis [facility] Anxiety disorder, unspecified ANXIETY DISORDER, UNSPEC IFIED Diagnosis 06/12/2020 02:07:00 PM [facility] F32.9 Major depressive disorder, single episod e, unspecified MAJOR DEPRESSIVE DISORDER, SINGLE EPISODE, UNSPECIFIED Diagnosis 06/12/2020 02:07:00 PM [facility] F17.210 Nicotine dependence, cigarettes, uncompl icated NICOTINE DEPENDENCE, CIGARETTES, UNCOMPLICATED Diagnosis 06/12/2020 02:07:00 PM [facility] F11.20 Opioid dependence, uncomplicated OPIOID DEPENDEN CE, UNCOMPLICATED Diagnosis 06/12/2020 02:07:00 PM [facility] F14.20 Cocaine dependence, uncomplicated COCAINE DEPEND ENCE, UNCOMPLICATED Diagnosis 06/12/2020 02:07:00 PM [facility] F15.20 Other stimulant dependence, uncomplicate d OTHER STIMULANT DEPENDENCE, UNCOMPLICATED Diagnosis 06/12/2020 02:07:00 PM [facility] Surgeries/Procedures Procedure Description Date Indications Data Source(s) Individual Counseling for Substance Abuse Treatment[facility] INDIV BURGLAR ALARM INSPECTOR FOR SUBSTANCE ABUSE TREATMENT, CONTINUING CARE 06/12/2020 12:00:[address] [facility] Individual Counseling for Substance Abuse Treatment, C ognitive-Behavioral INDIV BURGLAR ALARM INSPECTOR FOR SUBSTANCE ABUSE, COGNITIVE BEHAVIORAL 06/12/2020 12:00:[address] [facility] Group Counseling for Substance Abuse Treatment, Motiva tional Enhancement GROUP BURGLAR ALARM INSPECTOR FOR SUBSTANCE ABUSE, MOTIVATIONAL ENHANCE 06/12/2020 12:00:[address] [facility] Group Counseling for Substance Abuse Treatment, Spirit ual GROUP COUNSELING FOR SUBSTANCE ABUSE TREATMENT, SPIRITUAL 06/12/2020 12:00:[address] [facility] Group Counseling for Substance Abuse Treatment, Interp ersonal GROUP BURGLAR ALARM INSPECTOR FOR SUBSTANCE ABUSE TREATMENT, INTERPERSONAL 06/12/2020 12:00:[address] [facility] Results ID Date Data Source [id number] 08/06/2020 11:00:00 AM EDT [facility] Name Value Range Interpretation Code Description Data Benita rce(s) Supporting Document(s) SARS coronavirus 2 RNA [facility] This lab was ordered by [facility] and reported by [facility]. ID Date Data Source [id number] 06/14/2020 01:38:[address] [facility] Name Value Range Interpretation Code Description Data Benita rce(s) Supporting Document(s) HIV 1/2 Ab p24 Ag Screen Nonreactive Normal (applies to non-numeric results) [facility] ID Date Data Source [id number] 06/14/2020 06:53:[address] [facility] Name Value Range Interpretation Code Description Data Benita rce(s) Supporting Document(s) Opiate Screen,Urine Negative [facility] Amphetamine Screen,Urine Negative Normal (applies to non -numeric results) [facility] Benzodiazepines Scrn,Ur result Negative N ormal (applies to non-numeric results) [facility] Cocaine Screen,Urine Negative Normal (applies to non-num [place] results) [facility] Methadone Screen,Urine Negative Normal (applies to non-n umeric results) [facility] Cannabinoid Screen, Ur Negative Normal (applies to non-n umeric results) [facility] Therapeutic Drug Ranges for Emergency an d Rehabilitation Threshold Levels (ng/mL) Cocaine 300 Opiates 300 Cannabinoids 50 Barbiturates 200 Benzodiazepine 200 Methadone 300 Amphetamines 1000 All positive find ings are presumptive and unconfirmed. Confirmation of positive results are performed only at request of provider. Unconfirmed results must not be used for non-medical purposes (i.e. pre-employment and legal purposes) ID Date Data Source [id number] 06/13/2020 11:11:00 AM EDT [facility] Name Value Range Interpretation Code Description Data Benita rce(s) Supporting Document(s) Hep C Ab-T Test Nonreactive Normal (applies to non-numeric results) [facility] ID Date Data Source [id number] 06/13/2020 11:11:00 AM EDT [facility] Name Value Range Interpretation Code Description Data Benita rce(s) Supporting Document(s) Hep Bs Ag Result T-Test Nonreactive Normal (applies to non -numeric results) [facility] ID Date Data Source [id number] 06/13/2020 11:11:00 AM EDT [facility] Name Value Range Interpretation Code Description Data Benita rce(s) Supporting Document(s) HAVM Nonreactive Normal (applies to non-numeric resu lts) [facility] ID Date Data Source [id number] 06/13/2020 11:11:00 AM EDT [facility] Name Value Range Interpretation Code Description Data Benita rce(s) Supporting Document(s) Vitamin D,Total (25OH) 30.0-100.0 Normal (applies to non-n umeric results) [facility] Reference Range: <10 ng/mL: Deficien t 10-30 ng/mL: Insufficient 30-100 ng/mL: Sufficient >100 ng/mL: Toxicity possible ID Date Data Source [id number] 06/13/2020 11:12:00 AM EDT [facility] Name Value Range Interpretation Code Description Data Benita rce(s) Supporting Document(s) Syphilis Serology Nonreactive Normal (applies to non-numer ic results) [facility] ID Date Data Source [id number] 06/13/2020 10:28:00 AM EDT [facility] Name Value Range Interpretation Code Description Data Benita rce(s) Supporting Document(s) Sodium 141 mmol/L 137-145 Normal (applies to non-numeric resul ts) [facility] Potassium 3.5-5.1 Normal (applies to non-numeric resul ts) [facility] Chloride 108 mmol/L 98-112 Normal (applies to non-numeric resul ts) [facility] Carbon Dioxide CO2 22.0-33.0 Normal (applies to non-numer ic results) [facility] Anion Gap 4.0-11.0 Below low normal [facility] BUN 12 mg/dL 9-20 Normal (applies to non-numeric resul ts) [facility] Creatinine 0.80-1.50 Normal (applies to non-numeric resul ts) [facility] GFR >60 Normal (applies to non-numeric results) [facility] Result based on MDRD formula. Glucose Level 85 mg/dL 74-99 Normal (applies to non-numeric re sults) [facility] The reference range is only applicable w hen fasting. Calcium-Uncorrected 8.4-10.2 Normal (applies to non-nume maya results) [facility] Corrected Calcium 8.4-10.2 Normal (applies to non-numeri c results) [facility] Bilirubin,Total 0.2-1.3 Normal (applies to non-numeric results) [facility] Bilirubin,Direct 0.0-0.3 Normal (applies to non-numeric results) [facility] SGOT(AST) 17 U/L 17-59 Normal (applies to non-numeric resul ts) [facility] SGPT(ALT) 18 U/L 21-72 Below low normal [facility] Alkaline Phosphatase 108 U/L 38-126 Normal (applies to non-num t[place] results) [facility] can increase Alkaline Phosp le vels up to 2 times the normal adult value. Normal values for children and adolescents are 2 to 3 times the normal adult value. CPK 138 U/L 39-308 Normal (applies to non-numeric resul ts) [facility] Total Protein 6.3-8.2 Normal (applies to non-numeric re sults) [facility] Albumin 3.5-5.0 Below low normal [facility] Thyroid Stimulate Hormone TSH 0.358-3.740 No rmal (applies to non-numeric results) [facility] ID Date Data Source [id number] 06/13/2020 10:28:00 AM EDT [facility] Name Value Range Interpretation Code Description Data Benita rce(s) Supporting Document(s) Magnesium 1.80-2.40 Normal (applies to non-numeric resul ts) [facility] ID Date Data Source [id number] 06/13/2020 10:28:00 AM EDT [facility] Name Value Range Interpretation Code Description Data Benita rce(s) Supporting Document(s) C-Reactive Protein,Wide Range <3.00 Normal (applies t o non-numeric results) [facility] ID Date Data Source [id number] 06/13/2020 10:02:00 AM EDT [facility] Name Value Range Interpretation Code Description Data Benita rce(s) Supporting Document(s) White Blood Count 4.8-10.8 Normal (applies to non-numeri c results) [facility] Red Blood Count 4.35-6.[address] [facility] Hemoglobin 13.0-17.5 Below low normal [facility] Hematocrit 37.7-51.0 Below low [facility] Mean Corpuscular Volume 80-94 Normal (applies to non- numeric results) [facility] Mean Corpuscular Hemoglobin 27.0-33.0 Normal (appli es to non-numeric results) [facility] Mean Corpuscular HGB Conc 32.0-36.0 Normal (applies to no n-numeric results) [facility] Red Cell Distribution Width 11.5-14.5 Normal (appli es to non-numeric results) [facility] Platelet Count 218 X10 3/uL 130-450 Normal (applies to non-numeric results) [facility] Mean Platelet Volume 9.6-13.1 Normal (applies to non-num [place] results) [facility] Imm Grans% (AUTO) 0 % 0-2 Normal (applies to non-numeri c results) [facility] Neutrophils % (AUTO) 45 % 40-75 Normal (applies to non-num [place] results) [facility] Lymphocytes % (AUTO) 43 % 21-46 Normal (applies to non-num t[place] results) [facility] Monocytes % (AUTO) 8 % 5-12 Normal (applies to non-numer ic results) [facility] Eosinophils % (AUTO) 3 % 1-5 Normal (applies to non-num [place] results) [facility] Basophils % (AUTO) 1 % 0-1 Normal (applies to non-numer ic results) [facility] Imm Grans# (AUTO) 0.0-0.5 Normal (applies to non-numeri c results) [facility] Neutrophils # (AUTO) 1.5-8.1 Normal (applies to non-num t[place] results) [facility] Lymphocytes # (AUTO) 1.0-3.1 Normal (applies to non-num t[place] results) [facility] Monocytes # (AUTO) 0.2-1.3 Normal (applies to non-numer ic results) [facility] Eosinophils# (AUTO) 0.0-0.5 Normal (applies to non-nume maya results) [facility] Basophils # (AUTO) 0.0-0.1 Normal (applies to non-numer ic results) [facility] ID Date Data Source [id number] 06/14/2020 09:23:00 AM EDT [facility] Name: GREGORIA MCDANIEL : 1990 A ge/Sex: 30M Ordering Provider: Stormy MORRIS Med Rec #: [id number] Reg Status: ADM IN Room #: 127-2 Date of Service: 06/13/20 Report Number: [id number] cc:Stormy MORRIS Send Report To: [id number] XRP/XR Chest 2 View [Pa & Lat] [...] Date/Time: 06/13/20 1503 Transcribed Date/Time: 06/14/20 0923 Overlock Operator: THELMA Name Value Range Interpretation Code Description Data Benita rce(s) Supporting Document(s) ID Date Data Source [id number] 06/14/2020 09:01:00 AM EDT [facility] Name: GREGORIA MCDANIEL : 1990 A ge/Sex: 30M Ordering Provider: Stormy MORRIS Med Rec #: [id number] Reg Status:ADM IN Room #: 127-2 Date of Service: 06/13/20 Report Number: [id number] cc: Stormy MORRIS; Daksha Ernst MD Send Report To: Reason for exam: Chest Pain SINUS RHYTHM WITH SHORT MN INTERVAL BORDERLINE ECG cw 03/21/13 there is no sign change Physician Brush Filler Hand: Otis Sarabia M.D. ECG HEART RATE: 63 /min ECG RR INTERVAL: 939 ms ECG P DURATION: 95 ms ECG QRS DURATION: 106 ms ECG MN INTERVAL: 104 ms ECG QT INTERVAL: 416 ms ECG QTC INTERVAL: 421 ms Q-T dispersion: ms ECG P AXIS: 76 deg ECG QRS AXIS: 86 deg ECG T AXIS: 79 deg REPORT SIGNATURE ON FILE 06/14/20901 Reported By: Otis Sarabia MD, [facility] <<Signature on File>> Exam Date/Time: 06/13/20 1327 Order #: [id number] Dictation Date/Time: 06/14/20900 Transcribed Date/Time: 06/14/20900 Overlock Operator: JUAN Name Value Range Interpretation Code Description Data Benita rce(s) Supporting Document(s) ID Date Data Source [id number] 06/12/2020 06:08:00 PM EDT [facility] Name Value Range Interpretation Code Description Data Benita rce(s) Supporting Document(s) Opiate Screen,Urine Negative [facility] Amphetamine Screen,Urine Negative Normal (applies to non -numeric results) [facility] Benzodiazepines Scrn,Ur result Negative N ormal (applies to non-numeric results) [facility] Cocaine Screen,Urine Negative [facility] Methadone Screen,Urine Negative Normal (applies to non-n umeric results) [facility] Cannabinoid Screen, Ur Negative Normal (applies to non-n umeric results) [facility] Therapeutic Drug Ranges for Emergency an d Rehabilitation Threshold Levels (ng/mL) Cocaine 300 Opiates 300 Cannabinoids 50 Barbiturates 200 Benzodiazepine 200 Methadone 300 Amphetamines 1000 All positive find ings are presumptive and unconfirmed. Confirmation of positive results are performed only at request of provider. Unconfirmed results must not be used for non-medical purposes (i.e. pre-employment and legal purposes) ID Date Data Source [id number] 06/12/2020 05:34:[address] [facility] Name Value Range Interpretation Code Description Data Benita rce(s) Supporting Document(s) Color,Urine Yellow Normal (applies to non-numeric resu lts) [facility] Clarity,Urine Clear [facility] ospital Specific Pavilion,Urine 1.001-1.030 Normal (applies to non- numeric results) [facility] PH,Urine 5.0-8.0 Normal (applies to non-numeric resul ts) [facility] Protein,Urine Negative Normal (applies to non-numeric re sults) [facility] Glucose,Urine (UA) Negative Normal (applies to non-numer ic results) [facility] Ketones,Urine Negative Normal (applies to non-numeric re sults) [facility] Blood,Urine Negative Normal (applies to non-numeric resu lts) [facility] Bilirubin,Urine Negative Normal (applies to non-numeric results) [facility] Urobilinogen,Urine Norm 0.2-1 Normal (applies to non-numer ic results) [facility] Leukocyte Esterase,Urine Negative Normal (applies to non -numeric results) [facility] Nitrite,Urine Negative Normal (applies to non-numeric re sults) [facility] ID Date Data Source [id number] 01/17/2020 07:12:00 PM EDT [facility] Name: GREGORIA MCDANIEL DIN: [id number] F [facility] 1990 Physician: Marita Benites MD Date of Service: 01/16/20 EXAM: CHEST The lungs, mediastinum and chest wall are unremarkable. cc: Dictation Date/Time: 01/17/201737 <Electronically signed by Kingston Herrera MD> Transcribed Date/Time: 01/17/20191101/18/20 0803 Overlock Operator: JENNIFER Name Value Range Interpretation Code Description Data Benita rce(s) Supporting Document(s) Procedure Vital Signs ID Date Data Source [id number] 06/21/2020 10:59:00 AM EDT [facility] Name Value Range Interpretation Code Description Data Source(s) Weight Measurement Method 1 1 [facility] Weight (Calculated Kilograms) 60.[address] [facility] Weight [address] [facility] Temperature Source [address] [facility] Temperature 97.7 97.7 [facility] Respiratory Effort [address] [facility] Respiratory Rate 15 15 [facility] Pulse Assessment Method [address] [facility] Pulse Rate [address] [facility] Height (Calculated Centimeters) 172.[address] [facility] Height [address] [facility] Blood Pressure 122/68 122/68 [facility] Body Mass Index (BMI) 20.3 20.3 [facility] Weight Measurement Method [address] [facility] Weight (Calculated Kilograms) 60.[address] [facility] Weight [address] [facility] Temperature Source [address] [facility] Temperature 97.7 97.7 [facility] Respiratory Effort [address] [facility] Respiratory Rate 15 15 [facility] Pulse Assessment Method [address] [facility] Pulse Rate [address] [facility] Height (Calculated Centimeters) 172.[address] [facility] Height [address] [facility] Blood Pressure 122/68 122/68 [facility] Body Mass Index (BMI) 20.3 20.3 [facility] Weight Measurement Method [address] [facility] Weight (Calculated Kilograms) 60.[address] [facility] Weight [address] [facility] Temperature Source [address] [facility] Temperature 97.7 97.7 [facility] Respiratory Effort [address] [facility] Respiratory Rate 15 15 [facility] Pulse Assessment Method [address] [facility] Pulse Rate [address] [facility] Height (Calculated Centimeters) 172.[address] [facility] Height [address] [facility] Blood Pressure 122/68 122/68 [facility] Body Mass Index (BMI) 20.3 20.3 [facility] Weight Measurement Method [address] [facility] Weight (Calculated Kilograms) 60.[address] [facility] Weight [address] [facility] Temperature Source [address] [facility] Temperature 97.7 97.7 [facility] Respiratory Effort [address] [facility] Respiratory Rate 14 14 [facility] Pulse Assessment Method [address] [facility] Pulse Rate [address] [facility] Height (Calculated Centimeters) 172.[address] [facility] Height [address] [facility] Blood Pressure 128/74 128/74 [facility] Body Mass Index (BMI) 20.3 20.3 [facility] Weight Measurement Method [address] [facility] Weight (Calculated Kilograms) 60.[address] [facility] Weight [address] [facility] Temperature Source [address] [facility] Temperature 97.7 97.7 [facility] Respiratory Effort [address] [facility] Respiratory Rate 16 16 [facility] Pulse Assessment Method [address] [facility] Pulse Rate [address] [facility] Height (Calculated Centimeters) 172.[address] [facility] Height [address] [facility] Blood Pressure 128/74 128/74 [facility] Body Mass Index (BMI) 20.3 20.3 [facility] Weight Measurement Method [address] [facility] Weight (Calculated Kilograms) 60.[address] [facility] Weight [address] [facility] Temperature Source [address] [facility] Temperature 97.7 97.7 [facility] Respiratory Effort [address] [facility] Respiratory Rate 14 14 [facility] Pulse Rate [address] [facility] Height (Calculated Centimeters) 172.[address] [facility] Height [address] [facility] Blood Pressure 125/75 125/75 [facility] Body Mass Index (BMI) 20.3 20.3 [facility] Weight (Calculated Kilograms) 68.[address] [facility] Height (Calculated Centimeters) 170.[address] [facility] Body Mass Index (BMI) 23.5 23.5 [facility]
[2020-12-28 14:39] LABS: RSV AMPLIFICATION NEGATIVE (NEGATIVE)
[2020-12-28 15:30] VITALS: BP 97/55
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
--- NOTE | 2020-12-28 17:02 | ECGEPIP ---
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
[2020-12-28] MEDS ORDERED: ENOXAPARIN 40MG/0.4ML SYRINGE (J1650 PER 10MG) SC SCH (21:00)
== END 2020-12-28 16:10 | disposition left against medical advice (07) | DRG 351 ==
LOC: EDBD 07:42 → M ED 07:42 → M ED INP 14:07 → M ICU 15:43
PROVIDERS: ADMIT Internal Medicine; ATTEND Internal Medicine
DX: M62.82 Rhabdomyolysis (principal); Z78.1 Physical restraint status; E16.2 Hypoglycemia, unspecified; Z20.822 Contact with and (suspected) exposure to COVID-19; D72.829 Elevated white blood cell count, unspecified; F19.10 Other psychoactive substance abuse, uncomplicated

== ENCOUNTER 2021-01-01 18:56 | Emergency (ER) | payer MEDICAID, SELFPAY ==
[2021-01-01] MEDS ORDERED: LORazepam 2 MG TAB PO ONE (19:25)
[2021-01-01 20:17] LABS: HEMATOCRIT 34.4 % (42.0-52.0); HEMOGLOBIN 11.8 g/dl (13.5-17.5); MEAN CORPUSCULAR HEMOGLOBIN 28.7 pg (27.0-33.0); MEAN CORPUSCULAR HGB CONC 34.3 g/dl (32.0-36.5); MEAN CORPUSCULAR VOLUME 83.7 fl (80.0-96.0); PLATELET COUNT, AUTOMATED 186 10^3/uL (150-450); RED BLOOD COUNT 4.11 10^6/uL (4.30-6.10); WHITE BLOOD COUNT 12.6 10^3/uL (4.0-10.0)
[2021-01-01 21:14] LABS: ACETAMINOPHEN LEVEL 2.2 UG/ML (10.0-30.0); ALBUMIN 3.7 GM/DL (3.2-5.2); ALT/SGPT 134 U/L (12-78); BILIRUBIN,DIRECT 0.4 MG/DL (0.0-0.2); BILIRUBIN,TOTAL 0.8 MG/DL (0.2-1.0); BLOOD UREA NITROGEN 22 MG/DL (7-18); CALCIUM LEVEL 8.4 MG/DL (8.5-10.1); CARBON DIOXIDE LEVEL 27 MEQ/L (21-32); CHLORIDE LEVEL 103 MEQ/L (98-107); CREATININE FOR GFR 0.85 MG/DL (0.70-1.30); ETHYL ALCOHOL (ETHANOL) < 0.003 % (0.000-0.010); GLOMERULAR FILTRATION RATE > 60.0 (>60); GLUCOSE, FASTING 58 MG/DL (70-100); POTASSIUM SERUM 4.1 MEQ/L (3.5-5.1); SODIUM LEVEL 139 MEQ/L (136-145); THYROID STIMULATING HORMONE 0.096 uIU/ML (0.358-3.740); TOTAL PROTEIN 6.5 GM/DL (6.4-8.2)
[2021-01-01] MEDS ORDERED: GLUCAGON INJ 1MG VIAL IM STA (21:25)
[2021-01-02 01:25] LABS: AMPHETAMINES LEVEL URINE NEGATIVE (NEGATIVE); BARBITURATES URINE NEGATIVE (NEGATIVE); BENZODIAZEPINES URINE NEGATIVE (NEGATIVE); CANNABINOIDS URINE NEGATIVE (NEGATIVE); COCAINE METABOLITE URINE NEGATIVE (NEGATIVE); METHADONE URINE NEGATIVE (NEGATIVE); OPIATES URINE NEGATIVE (NEGATIVE); PHENCYCLIDINE URINE NEGATIVE (NEGATIVE)
[2021-01-02 13:08] VITALS: BP 134/66
--- NOTE | 2021-01-02 13:34 | REP ---
INDICATION: trauma COMPARISON: None. TECHNIQUE: AP, lateral, bilateral oblique views left foot. FINDINGS: The osseous structures and joint spaces are intact and normal. There is no evidence for acute fracture or dislocation. Surrounding soft tissues are unremarkable. No subcutaneous emphysema or radiodense foreign body. IMPRESSION: . No acute fracture or dislocation. <Electronically signed by Ruiz Orozco > 01/02/21 0624
== END 2021-01-02 13:53 | disposition home or self-care (01) ==
LOC: M ED 18:56
DX: F15.229 Other stimulant dependence with intoxication, unspecified (principal); F33.9 Major depressive disorder, recurrent, unspecified
CPT/HCPCS: 36415; 73630; 80048; 80076; 80143; 80307; 82077; 84443; 85027; 99284; J1610

== ENCOUNTER → 2022-08-21 | Outpatient (REF) | payer OTHER ==
[2022-08-21 19:02] LABS: GC DNA AMPLIFICATION NEGATIVE (NEGATIVE)
== END ==
LOC: M LAB REF 16:26
PROVIDERS: ATTEND Family Medicine
DX: F11.20 Opioid dependence, uncomplicated (principal)